=== PATIENT | male | born 1945 | race Caucasian/White ===

== ENCOUNTER 2018-05-13 15:16 | Inpatient (IN) ==
--- NOTE | 2018-05-13 15:29 | ED ---
HPI General Chief complaint: Weakness Stated complaint: sob Time Seen by Provider: 05/13/18 15:22 Source: patient Mode of arrival: ambulatory Limitations: no limitations History of Present Illness HPI narrative: This 72-year-old male is complaining of shortness of breath. He says is been having increasing trouble breathing for the past week. He was scheduled with Dr. Pascal to have a cardiac catheterization on May 14. He had stopped his Eliquis 5 days ago in anticipation of this. He stopped by Dr. Pascal's office today and was told that his hemoglobin was abnormal. He had had it checked at [facility] yesterday. He does smoke cigarettes. He is not having chest pain. There is been no fever or chills. He has not noted black stools. Related Data Home Medications Medication Instructions Recorded Confirmed Other Unknown Meds 05/13/18 apixaban [Eliquis] 5 mg PO BID 05/13/18 05/13/18 Allergies Allergy/AdvReac Type Severity Reaction Status Date / Time ciprofloxacin [From Cipro] Allergy Intermediate Muscle Pain Verified 05/13/18 15 :38 Review of Systems ROS: all other systems reviewed are negative Constitutional Denies weight gain Cardiovascular Denies chest pain and Reports dyspnea Respiratory Reports dyspnea Gastrointestinal Denies diarrhea and Denies nausea [facility] Medical History Medical History Afib (Acute) HTN (hypertension) (Acute) Social History Social History Substance History: No History of Abuse Smoking Status: Current every day smoker Tobacco Type: Cigarettes How Often Do You Have a Drink Containing Alcohol: Never Recent Travel in [facility] within the Last 8 Weeks: No Recent Out of Country Travel within the Last 8 Weeks: No Exam Narrative Exam Narrative: GENERAL: Well-developed male. He appears pale SKIN: Focused skin assessment warm/dry. HEAD: Atraumatic. Normocephalic. EYES: Pupils equal and round. No scleral icterus. No injection or drainage. ENT: No nasal bleeding or discharge. Mucous membranes pink and moist. NECK: Trachea midline. No JVD. CARDIOVASCULAR: Regular rate and rhythm. No murmur appreciated. RESPIRATORY: No accessory muscle use. There is an occasional wheeze. There are bibasilar rales GASTROINTESTINAL: Abdomen soft, non-tender, nondistended. Hepatic and splenic margins not palpable. On rectal exam stool is brown but strongly positive for heme MUSCULOSKELETAL: No obvious deformities. No clubbing. No cyanosis. Trace edema. NEUROLOGICAL: Awake and alert. No obvious cranial nerve deficits. Motor grossly within normal limits. Normal speech. PSYCHIATRIC: Appropriate mood and affect; memory appears quite poor Course Initial Documented Vital Signs Temperature 97.6 F 05/13/18 15:20 Pulse Rate 89 05/13/18 15:20 Respiratory Rate 24 05/13/18 15:20 Blood Pressure 188/92 H 05/13/18 15:20 Pulse Oximetry 96 05/13/18 15:20 Last Documented Vital Signs Temperature 97.9 F 05/13/18 20:40 Pulse Rate 81 05/13/18 21:53 Respiratory Rate 16 05/13/18 21:53 Blood Pressure 164/86 H 05/13/18 21:53 Pulse Oximetry 100 05/13/18 21:53 Critical Care Time Critical Care Time: Yes Total Critical Care Time: 40 Attestation: Aggregate critical care time was 40 minutes. Time to perform other separately billable procedures was not included in the critical care time. My time did not include minutes spent treating any other patients simultaneously or on activities that did not directly contribute to the patient's treatment. The services I provided to this patient were to treat and/or prevent clinically significant deterioration that could result in: , disability, further hypoxia. I provided critical care services requiring my management, as noted below: Chart data review, documentation time, medication orders and management, vital sign assessments/reviewing monitor data, ordering and reviewing lab tests, ordering and interpreting/reviewing x-rays and diagnostic studies, care of the patient and discussion of the patient with the admitting physicians. Sign Out Sign Out Data: Patient Sign Out occurred on 05/13/18 at 16:01. Patient's care was discussed, and care was transferred from Acosta Awad MD to Inez Trinh MD. Sign Out Comment: Gentleman presented with shortness of breath. He has heme positive stool and findings suggestive of CHF. Lab work and x-rays are pending Last updated by Acosta Awad MD at 05/13/18 15:55 Post-Handoff Eval: I received care of patient in checkout. At time of checkout labs are pending with plan for likely admission. Labs revealed anemia and 2 u PRBCs were ordered. Shortly after I took over care of patient he acutely complained of acute worsening shortness of breath at which time he was at the edge of the bed leaning forward. His pulse ox was low in the 80s. He had diffuse wheezes throughout and DuoNeb was ordered but this did not improve and he continued to worsen clinically at which time he was placed on BiPAP and given been 0.5 mg of Ativan. He had significant improvement with this and began to feel comfortable with normalization of his oxygenation. At that time he was also given 40 mg of Lasix and Solu-Medrol. The patient had already been admitted at this time at which time I called Dr. Read, the hospitalist refrigerated national truck driver, and updated the hospitalist team regarding the change in his condition. The mid-level and I discussed how he appears well at this time but as he is to receive blood products later he could have acute decompensation despite receiving Lasix now and again later. We agreed that he should be transferred to [facility] to the ICU under the hospitalist/mailroom coordinator service in case he decompensates overnight there are physicians in house (other than the solo physician in the ED ) that could take care of him. Medical Decision Making MDM Narrative Medical Screen Exam Complete: Yes Emergency Medical Condition: Yes Lab Data Result diagrams: 05/13/18 15:30 05/13/18 15:30 Lab Results 05/13/18 05/13/18 05/13/18 Range/Units 15:30 15:30 15:30 CBC w Diff Slide review pending WBC 7.5 (4.0-11.0) th/mm3 RBC 3.32 L (4.50-5.90) mil/mm3 Hgb 7.2 L (13.0-17.0) gm/dL Hct 23.8 L (39.0-51.0) % MCV 71.7 L (80.0-100.0) fL MCH 21.6 L (27.0-34.0) pg MCHC 30.1 L (32.0-36.0) % RDW 20.3 H (11.6-17.2) % Plt Count 324 (150-450) th/mm3 MPV 9.4 (7.0-11.0) fL Neut % (Auto) 67.3 (16.0-70.0) % Lymph % (Auto) 21.7 (9.0-44.0) % Fajardo % (Auto) 8.3 H (0.0-8.0) % Eos % (Auto) 2.0 (0.0-4.0) % Baso % (Auto) 0.7 (0.0-2.0) % Neut # (Auto) 5.0 (1.8-7.7) th/mm3 Lymph # (Auto) 1.6 (1.0-4.8) th/mm3 Fajardo # (Auto) 0.6 (0.0-0.9) th/mm3 Eos # (Auto) 0.2 (0.0-0.4) th/mm3 Baso # (Auto) 0.1 (0.0-0.2) th/mm3 WBC Differential . Diff Scan Auto diff confirmed Differential Comment . Platelet Estimate Normal (Normal) Platelet Morphology Normal (Normal) Target Cells 1+ H (None) Ovalocytes 1+ H (None) PT 10.5 (9.8-11.6) sec INR 1.0 Ratio APTT 26.8 (23.4-31.7) sec Puncture Site Patient Temperature O2 Saturation (90-100) % ABG pH (7.380-7.420) ABG pCO2 (38-42) mmHg ABG pO2 (61-120) mmHg ABG HCO3 (22-26) mmol/L ABG O2 Content (12.0-20.0) Vol % ABG Base Excess (-2-2) mmol/L ABG Methemoglobin (0-2) % Paco Test Hemoglobin (12.0-16.0) G/DL Carboxyhemoglobin (0-4) % O2 Delivery Device Vent Setting Inspired O2 % Critical Value Sodium 139 (136-145) meq/L Potassium 3.7 (3.5-5.1) meq/L Chloride 109 H (98-107) meq/L Carbon Dioxide 22.2 (21.0-32.0) meq/L Anion Gap 8 (5-15) meq/L BUN 15 (7-18) mg/dL Creatinine 1.40 H (0.60-1.30) mg/dL Estimated GFR 50 L (>89) mL/min Random Glucose 98 (74-106) mg/dL Calcium 8.8 (8.5-10.1) mg/dL Magnesium 2.2 (1.5-2.5) mg/dL Total Bilirubin 0.4 (0.2-1.0) mg/dL AST 18 (15-37) U/L ALT 21 (12-78) U/L Alkaline Phosphatase 99 (45-117) U/L Troponin I 0.03 (0.02-0.05) ng/mL B-Natriuretic Peptide (0-100) pg/mL Total Protein 8.6 H (6.4-8.2) g/dL Albumin 3.5 (3.4-5.0) g/dL Urine Color (Yellw/Straw) Urine Clarity (Clear) Urine pH (5.0-8.5) Ur Specific Edwards (1.002-1.035) Urine Protein (Neg-Trace) mg/dL Urine Glucose (UA) (Negative) mg/dL Urine Ketones (Negative) mg/dL Urine Occult Blood (Negative) Urine Nitrate (Negative) Urine Bilirubin (Negative) Urine Urobilinogen (Less than 2) mg/dL Ur Leukocyte Esterase (Negative) Urine RBC (0-3) /hpf Urine WBC (0-5) /hpf Urine Mucus (Occasional) /lpf Micro UA Comment Ur Microscopic Review Urine Culture Comments Blood Type Antibody Screen MTS Gel Crossmatch 05/13/18 05/13/18 05/13/18 Range/Units 15:30 15:30 16:05 CBC w Diff WBC (4.0-11.0) th/mm3 RBC (4.50-5.90) mil/mm3 Hgb (13.0-17.0) gm/dL Hct (39.0-51.0) % MCV (80.0-100.0) fL MCH (27.0-34.0) pg MCHC (32.0-36.0) % RDW (11.6-17.2) % Plt Count (150-450) th/mm3 MPV (7.0-11.0) fL Neut % (Auto) (16.0-70.0) % Lymph % (Auto) (9.0-44.0) % Fajardo % (Auto) (0.0-8.0) % Eos % (Auto) (0.0-4.0) % Baso % (Auto) (0.0-2.0) % Neut # (Auto) (1.8-7.7) th/mm3 Lymph # (Auto) (1.0-4.8) th/mm3 Fajardo # (Auto) (0.0-0.9) th/mm3 Eos # (Auto) (0.0-0.4) th/mm3 Baso # (Auto) (0.0-0.2) th/mm3 WBC Differential Diff Scan Differential Comment Platelet Estimate (Normal) Platelet Morphology (Normal) Target Cells (None) Ovalocytes (None) PT (9.8-11.6) sec INR Ratio APTT (23.4-31.7) sec Puncture Site Patient Temperature O2 Saturation (90-100) % ABG pH (7.380-7.420) ABG pCO2 (38-42) mmHg ABG pO2 (61-120) mmHg ABG HCO3 (22-26) mmol/L ABG O2 Content (12.0-20.0) Vol % ABG Base Excess (-2-2) mmol/L ABG Methemoglobin (0-2) % Paco Test Hemoglobin (12.0-16.0) G/DL Carboxyhemoglobin (0-4) % O2 Delivery Device Vent Setting Inspired O2 % Critical Value Sodium (136-145) meq/L Potassium (3.5-5.1) meq/L Chloride (98-107) meq/L Carbon Dioxide (21.0-32.0) meq/L Anion Gap (5-15) meq/L BUN (7-18) mg/dL Creatinine (0.60-1.30) mg/dL Estimated GFR (>89) mL/min Random Glucose (74-106) mg/dL Calcium (8.5-10.1) mg/dL Magnesium (1.5-2.5) mg/dL Total Bilirubin (0.2-1.0) mg/dL AST (15-37) U/L ALT (12-78) U/L Alkaline Phosphatase (45-117) U/L Troponin I (0.02-0.05) ng/mL B-Natriuretic Peptide 774 H (0-100) pg/mL Total Protein (6.4-8.2) g/dL Albumin (3.4-5.0) g/dL Urine Color (Yellw/Straw) Urine Clarity (Clear) Urine pH (5.0-8.5) Ur Specific Edwards (1.002-1.035) Urine Protein (Neg-Trace) mg/dL Urine Glucose (UA) (Negative) mg/dL Urine Ketones (Negative) mg/dL Urine Occult Blood (Negative) Urine Nitrate (Negative) Urine Bilirubin (Negative) Urine Urobilinogen (Less than 2) mg/dL Ur Leukocyte Esterase (Negative) Urine RBC (0-3) /hpf Urine WBC (0-5) /hpf Urine Mucus (Occasional) /lpf Micro UA Comment Ur Microscopic Review Urine Culture Comments Blood Type B Positive Antibody Screen Negative MTS Gel Crossmatch See Detail 05/13/18 05/13/18 Range/Units 17:30 17:35 CBC w Diff WBC (4.0-11.0) th/mm3 RBC (4.50-5.90) mil/mm3 Hgb (13.0-17.0) gm/dL Hct (39.0-51.0) % MCV (80.0-100.0) fL MCH (27.0-34.0) pg MCHC (32.0-36.0) % RDW (11.6-17.2) % Plt Count (150-450) th/mm3 MPV (7.0-11.0) fL Neut % (Auto) (16.0-70.0) % Lymph % (Auto) (9.0-44.0) % Fajardo % (Auto) (0.0-8.0) % Eos % (Auto) (0.0-4.0) % Baso % (Auto) (0.0-2.0) % Neut # (Auto) (1.8-7.7) th/mm3 Lymph # (Auto) (1.0-4.8) th/mm3 Fajardo # (Auto) (0.0-0.9) th/mm3 Eos # (Auto) (0.0-0.4) th/mm3 Baso # (Auto) (0.0-0.2) th/mm3 WBC Differential Diff Scan Differential Comment Platelet Estimate (Normal) Platelet Morphology (Normal) Target Cells (None) Ovalocytes (None) PT (9.8-11.6) sec INR Ratio APTT (23.4-31.7) sec Puncture Site Left radial Patient Temperature 98.6 O2 Saturation 93 (90-100) % ABG pH 7.42 (7.380-7.420) ABG pCO2 32 L (38-42) mmHg ABG pO2 84 (61-120) mmHg ABG HCO3 21 L (22-26) mmol/L ABG O2 Content 9.6 L (12.0-20.0) Vol % ABG Base Excess -3.2 L (-2-2) mmol/L ABG Methemoglobin 1.3 (0-2) % Paco Test Present Hemoglobin 7.2 L* (12.0-16.0) G/DL Carboxyhemoglobin 2.3 (0-4) % O2 Delivery Device Bipap Vent Setting Ipap 15/epap 5 Inspired O2 50 % Critical Value Yes Sodium (136-145) meq/L Potassium (3.5-5.1) meq/L Chloride (98-107) meq/L Carbon Dioxide (21.0-32.0) meq/L Anion Gap (5-15) meq/L BUN (7-18) mg/dL Creatinine (0.60-1.30) mg/dL Estimated GFR (>89) mL/min Random Glucose (74-106) mg/dL Calcium (8.5-10.1) mg/dL Magnesium (1.5-2.5) mg/dL Total Bilirubin (0.2-1.0) mg/dL AST (15-37) U/L ALT (12-78) U/L Alkaline Phosphatase (45-117) U/L Troponin I (0.02-0.05) ng/mL B-Natriuretic Peptide (0-100) pg/mL Total Protein (6.4-8.2) g/dL Albumin (3.4-5.0) g/dL Urine Color Yellow (Yellw/Straw) Urine Clarity Clear (Clear) Urine pH 6.5 (5.0-8.5) Ur Specific Edwards 1.020 (1.002-1.035) Urine Protein 100 H (Neg-Trace) mg/dL Urine Glucose (UA) Negative (Negative) mg/dL Urine Ketones Negative (Negative) mg/dL Urine Occult Blood Negative (Negative) Urine Nitrate Negative (Negative) Urine Bilirubin Negative (Negative) Urine Urobilinogen 0.2 (Less than 2) mg/dL Ur Leukocyte Esterase Negative (Negative) Urine RBC 0-3 (0-3) /hpf Urine WBC 0-5 (0-5) /hpf Urine Mucus Rare H (Occasional) /lpf Micro UA Comment Culture not ind Ur Microscopic Review Microscopic reviewed Urine Culture Comments Culture not ind Blood Type Antibody Screen MTS Gel Crossmatch Imaging Data Radiologist's impression: Chest X-Ray 05/13/18 15:25 CONCLUSION: Probable congestive failure superimposed over chronic fibrosis. Inflammatory process cannot be entirely excluded. Discharge Plan Discharge Disposition Patient Disposition: ED Admit(ED Internal Use Only) Discharge Condition Condition: Serious Discharge Order Discharge Orders: ED Use Only Admit Order (Routine); Ordered 05/13/18 Ordered By: Inez Trinh Discharge Details Diagnosis: Acute respiratory failure, Acute exacerbation of CHF (congestive heart failure) , Acute blood loss anemia Physicians Team ED Provider: Inez Trinh Primary Care Provider: UNKNOWN, Attending Provider: Connor Read Other Providers: Emely Osullivan ; Fabrizio Fenton Status ED Status: Admitted Patient
[2018-05-13] MEDS ORDERED: Pantoprazole Inj 80 MG in Sodium Chlor 0.9% Inj 35 ML IV.SIG ONE (15:32)
[2018-05-13 15:49] LABS: Chloride 109 meq/L (98-107); Potassium 3.7 meq/L (3.5-5.1); Sodium 139 meq/L (136-145)
[2018-05-13 15:52] LABS: Albumin 3.5 g/dL (3.4-5.0); Anion Gap 8 meq/L (5-15); Blood Urea Nitrogen 15 mg/dL (7-18); Calcium 8.8 mg/dL (8.5-10.1); Carbon Dioxide 22.2 meq/L (21.0-32.0); Glucose,Random 98 mg/dL (74-106); Magnesium 2.2 mg/dL (1.5-2.5)
[2018-05-13 15:53] LABS: Baso # (Auto) 0.1 th/mm3 (0.0-0.2); Baso % (Auto) 0.7 % (0.0-2.0); Eos # (Auto) 0.2 th/mm3 (0.0-0.4); Hematocrit 23.8 % (39.0-51.0); Hemoglobin 7.2 gm/dL (13.0-17.0); Lymph # (Auto) 1.6 th/mm3 (1.0-4.8); Lymph % (Auto) 21.7 % (9.0-44.0); Mean Corpuscular Hemoglobin 21.6 pg (27.0-34.0); Mean Corpuscular Volume 71.7 fL (80.0-100.0); Mean Platelet Volume 9.4 fL (7.0-11.0); Mono # (Auto) 0.6 th/mm3 (0.0-0.9); Mono % (Auto) 8.3 % (0.0-8.0); Neut % (Auto) 67.3 % (16.0-70.0); Platelet Count 324 th/mm3 (150-450); Red Blood Count 3.32 mil/mm3 (4.50-5.90); Red Cell Distribution Width 20.3 % (11.6-17.2); White Blood Count 7.5 th/mm3 (4.0-11.0)
[2018-05-13 15:54] LABS: Mean Corpuscular HGB Conc 30.1 % (32.0-36.0)
[2018-05-13 15:55] LABS: Activated Partial Thrombo Time 26.8 sec (23.4-31.7); Alanine Aminotransferase 21 U/L (12-78); Aspartate Aminotransferase 18 U/L (15-37); Prothrombin Time 10.5 sec (9.8-11.6)
[2018-05-13 15:56] LABS: Glomerular Filtration Rate 50 mL/min (>89)
--- NOTE | 2018-05-13 15:56 | XR ---
EXAM DATE: 05/13/2018 3:53 PM EST AGE/SEX: 72 years / Male INDICATIONS: Cough and short of breath. CLINICAL DATA: This is the patient's initial encounter. Patient reports that signs and symptoms have been present for 3 days and indicates a pain score of 4/10. MEDICAL/SURGICAL HISTORY: None. None. COMPARISON: No prior exams available for comparison. FINDINGS: The study is abnormal. I have no prior studies for comparison. The heart is enlarged. There are moder ate interstitial superimposed over what looks like chronic fibrotic changes suggesting congestive ana lure. There is no pleural effusion. There is no alveolar consolidation. Degenerative changes about both shoulders. CONCLUSION: Probable congestive failure superimposed over chronic fibrosis. Inflammatory process cannot be entirely excluded. Electronically signed by: August Mullen MD Board Certified Radiologist 05/13/2018 3:55 PM EST
[2018-05-13 15:57] LABS: Total Protein 8.6 g/dL (6.4-8.2)
[2018-05-13 15:58] LABS: Alkaline Phosphatase 99 U/L (45-117)
[2018-05-13 16:00] LABS: Troponin I 0.03 ng/mL (0.02-0.05)
[2018-05-13] MEDS: Pantoprazole Inj 80 MG in Sodium Chlor 0.9% Inj 100 ML IV.CONT SCH (16:03)
[2018-05-13] MEDS ORDERED: MethylPREDNISolone Sod Succinate Inj 125 MG/2 ML Vial IV.PUSH ONE (16:26)
[2018-05-13] MEDS ORDERED: Bisacodyl 10 MG Supp RECTAL PRN (16:29)
[2018-05-13] MEDS ORDERED: Acetaminophen 325 MG Tablet PO PRN (16:29)
[2018-05-13 16:30] LABS: Ovalocytes 1+; Platelet Estimate Normal (Normal); Platelet Morphology Normal (Normal); Target Cells 1+
--- NOTE | 2018-05-13 16:31 | P.HPIM ---
"History of Present Illness Primary Care Physician: UNKNOWN Chief Complaint: Shortness of breath and abnormal labs History of Present Illness: This is a 72-year-old male patient with a known medical history of atrial fibrillation on Eliquis and h/o hypertension who presented to the ED with complaints of shortness of breath x 1 week. He has actually been scheduled to undergo a cardiac catheterization tomorrow with Dr. Chi and in preparation for this procedure he has stopped his Eliquis 5 days ago. Supposedly his scoop filler called patient today with an abnormal hemoglobin and was advised to present to the ED for evaluation. Upon arrival patient was supposedly on RA and breathing comfortably. Shortly after while in the ED patient decompensated, was placed on BIPAP 15/5/50% with apparent accessory muscle use. Awaiting ABG. Patient is completely awake and oriented and actually improved with BIPAP and diuretics, given Lasix 40 mg IV with 1L urine output. Heme positive stool as well. BNP 774. Hemoglobin 7.2/hematocrit 23.8 on presentation. Admit to ICU for BIPAP administration, PRBC transfusion, ICU consult was well as GI consultation. It should be noted that patient denies any recent fever, chills, cough, headache, abdominal pain, chest pain, nausea, vomiting, diarrhea, black or bloody stools or dysuria. Attempting to obtain patient's medication list although he is unaware of what he takes at home. It is also questionable why the patient was going to have a cardiac cath tomorrow, patient is unaware. Review of Systems Review of Systems: all other systems reviewed are negative [facility] Medical History Medical History Afib (Acute) HTN (hypertension) (Acute) Social History Social History Substance History: No History of Abuse Second Hand Smoke Exposure: Yes Smoking Status: Current every day smoker Tobacco Type: Cigarettes How Often Do You Have a Drink Containing Alcohol: Never Recent Travel in [facility] within the Last 8 Weeks: No Recent Out of Country Travel within the Last 8 Weeks: No Immunization History Tetanus Immunization: >5 Years Medications and Allergies Allergies Allergy/AdvReac Type Severity Reaction Status Date / Time ciprofloxacin [From Cipro] Allergy Intermediate Muscle Pain Verified 05/13/18 15 :38 Home Medications Medication Instructions Recorded Confirmed Type Other Unknown Meds 05/13/18 History apixaban [Eliquis] 5 mg PO BID 05/13/18 05/13/18 History amiodarone 200 mg PO DAILY 05/14/18 05/14/18 History doxazosin 4 mg PO DAILY 05/14/18 05/14/18 History isosorbide mononitrate 30 mg PO DAILY 05/14/18 05/14/18 History prednisone 1 mg PO DAILY 05/14/18 05/14/18 History Active Medications: Active Medications Pantoprazole Sodium 80 mg/ (Sodium Chloride) 100 mls @ 10 mls/hr IV.CONT CONT KIRAN Last Admin: 05/13/18 16:03 Dose: 10 mls/hr Sodium Chloride (Ns Inj) 250 mls @ 15 mls/hr IV.SIG ONCE KIRAN Stop: 05/14/18 09:39 Physical Exam Vital signs: Vital Signs 05/13/18 15:20 05/13/18 15:25 05/13/18 16:06 Temperature 97.6 F Pulse Rate 89 89 Respiratory Rate 24 26 H Blood Pressure 188/92 H 185/82 H Pulse Oximetry 96 97 Intake & Output 05/12/18 05/13/18 05/13/18 18:59 06:59 18:59 Weight 85.5 kg Narrative: GENERAL: Well-developed, well-nourished critically ill patient on BIPAP with accessory muscle use. SKIN: Clammy. No rash. HEAD: Normocephalic. Atraumatic. EYES: Pupils equal and round. Hazy cornea. No scleral icterus. No injection or drainage. ENT: No nasal bleeding or discharge. Mucous membranes pink and moist. NECK: Supple. Trachea midline. CARDIOVASCULAR: Regular rate and rhythm. S1, S2 noted. RESPIRATORY: With accessory muscle use. Diffuse crackles, with exp wheezing to bilateral posterior lobes. Breath sounds equal bilaterally. GASTROINTESTINAL: Abdomen soft, non-tender, nondistended. Normoactive bowel sounds x4. MUSCULOSKELETAL: No obvious deformities. Extremities without clubbing, cyanosis , or edema. NEUROLOGICAL: Awake and alert. No obvious cranial nerve deficits. Motor grossly within normal limits. 5/5 muscle strength in bilateral upper and lower extremities. Normal speech. 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 Inflammatory process cannot be entirely excluded. Caprini VTE Risk Assessment Caprini VTE Risk Assessment: Moderate/High Risk (score >= 2) Caprini Risk Assessment Model: Point Value = 1 Point Value = 2 Point Value = 3 Point Value = 5 Age 41-60 Minor surgery BMI > 25 kg/m2 Swollen legs Varicose veins or History of unexplained or recurrent spontaneous Oral contraceptives or hormone replacement Sepsis (< 1 month) Serious lung disease, including pneumonia (< 1 month) Abnormal pulmonary function Acute myocardial infarction Congestive heart failure (< 1 month) History of inflammatory bowel disease Medical patient at bed rest Age 61-74 Arthroscopic surgery Major open surgery (> 45 min) Laparoscopic surgery (> 45 min) Malignancy Confined to bed (> 72 hours) Immobilizing plaster cast Central venous access Age >= 75 History of VTE Family history of VTE Factor V Leiden Prothrombin [id number] Lupus anticoagulant Anticardiolipin antibodies Elevated serum homocysteine Heparin-induced thrombocytopenia Other congenital or acquired thrombophilia Stroke (< 1 month) Elective arthroplasty Hip, pelvis, or leg fracture Acute spinal cord injury (< 1 month) Prophylaxis Regimen: Total Risk Factor Score Risk Level Prophylaxis Regimen 0-1 Low Early ambulation 2 Moderate Order ONE of the following: *Sequential Compression Device (SCD) *Heparin 5000 units SQ BID 3-4 Higher Order ONE of the following medications: *Heparin 5000 units SQ TID *Enoxaparin/Lovenox 40 mg SQ daily (WT < 150 kg, CrCl > 30 mL/min) *Enoxaparin/Lovenox 30 mg SQ daily (WT < 150 kg, CrCl > 10-29 mL/min) *Enoxaparin/Lovenox 30 mg SQ BID (WT < 150 kg, CrCl > 30 mL/min) AND/OR *Sequential Compression Device (SCD) 5 or more Highest Order ONE of the following medications: *Heparin 5000 units SQ TID (Preferred with Epidurals) *Enoxaparin/Lovenox 40 mg SQ daily (WT < 150 kg, CrCl > 30 mL/min) *Enoxaparin/Lovenox 30 mg SQ daily (WT < 150 kg, CrCl > 10-29 mL/min) *Enoxaparin/Lovenox 30 mg SQ BID (WT < 150 kg, CrCl > 30 mL/min) AND *Sequential Compression Device (SCD) Assessment and Plan Plan This is a 72-year-old male patient with a known medical history of atrial fibrillation and hypertension who presented to the ED with complaints of shortness of breath. Supposedly patient has been having shortness of breath for the past week, he has been scheduled to undergo a cardiac catheterization on May [address] Chi and for this procedure he has stopped his Eliquis 5 days ago. Supposedly scoop filler office called patient with an abnormal hemoglobin and was advised to present to the ED for evaluation. Acute CHF exacerbation, unspecified type, likely systolic Acute hypoxic and hypercapnic respiratory failure -BNP 774 on presentation. Chest x-ray showing probable congestive heart failure superimposed on chronic fibrosis. -Presented with shortness of breath for a week. Could be related to CHF exacerbation versus symptomatic anemia. -Was given Lasix IV 40 mg x1. Add additional Lasix 40. -Placed on Lasix IV 40 mg daily. Order for Lasix 20 mg IV between units. -Monitor intake and output closely. -Obtain ECHO. No recent ECHO in EMR. Consider consultation to patient's scoop filler Dr. Chi. -Decompensated in ED, requiring BIPAP. 15/5/50%. Continue efforts. Awaiting ABG. Close monitoring. -Transfer to [facility] for ICU, spoke with Dr. Noland who accepts transfer. Acute severe anemia suspect secondary to acute blood loss 2|2 GI bleed -Presented with shortness of breath as well as generalized fatigue over the past week. -Heme positive on presentation. Hemoglobin 7.2/hematocrit 23.8. -Supposed to undergo a cardiac cath on May 14 with scoop filler, has stopped Eliquis for 5 days now. -Started on Protonix drip. Continue. -Transfuse 2 units PRBC stat. Monitor for active bleeding. Trend H&H. Lasix between units. Monitor for overload. -Gastroenterology consulted, input & recommendations pending. Acute ? kidney injury on suspected chronic kidney disease -Creatinine 1.4/GFR 50. No obvious lab work in EMR. -Check labs in a.m. Should improve with diuretics. -Avoid nephrotoxins. DVT prophylaxis: SCDs. Hold chemical prophylaxis secondary to GI bleed. Discussed with patient, bedside RN, Dr. Trinh, Dr. Read and Dr. Noland. Transfer to [facility], patient is critically ill and has potential to decompensate overnight. Spoke with Dr. Noland who accepts patient. The exam, history, and the medical decision-making described in the above note were completed with the assistance of the mid-level provider. I reviewed and agree with the findings presented. I attest that I had a [id number] encounter with the patient on the same day, and personally performed and documented my assessment and findings in the medical record."
[2018-05-13] MEDS ORDERED: Sodium Chlor 0.9% Inj 250 ML IV.SIG SCH (17:00)
[2018-05-13 17:42] LABS: ABG Base Excess -3.2 mmol/L (-2-2); ABG PCO2 32 mmHg (38-42); ABG PO2 84 mmHg (61-120)
[2018-05-13 17:43] LABS: Bilirubin,Urine Negative (Negative); Clarity,Urine Clear (Clear); Color,Urine Yellow (Yellw/Straw); Glucose,Urine (UA) Negative (Negative); Leukocyte Esterase,Urine Negative (Negative); Nitrite,Urine Negative (Negative); PH,Urine 6.5 (5.0-8.5); Urobilinogen,Urine 0.2 mg/dL (Less than 2)
[2018-05-13 17:55] LABS: Mucus,Urine Rare /lpf (Occasional); RBC,Urine 0-3 /hpf (0-3); WBC,Urine 0-5 /hpf (0-5)
[2018-05-13] MEDS: MethylPREDNISolone Sod Succinate Inj 40 MG/ML Vial IV.PUSH SCH (22:20)
--- NOTE | 2018-05-13 23:37 | P.CONCC ---
History of Present Illness Service: Critical care medicine Consult date: 05/13/18 Requesting Physician: Pita Lebron Reason for Consult: respiratory failure Primary Care Provider: UNKNOWN Chief Complaint: Shortness of breath and abnormal labs History of Present Illness: This is a 72-year-old male with a history of coronary artery disease who presented to the emergency department with worsening shortness of breath times a few days. Per records and the patient report, he is scheduled for elective left heart catheterization tomorrow 05/14 by his grade teacher. The patient states that he has been having worsening left shoulder pain and bilateral lower extremity pain for the past few weeks, and that prompted left heart catheterization. His Eliquis has been held times 5 days in preparation for this. He presented to the emergency department with severe shortness of breath and acute hypoxemia with respiratory distress. He was placed on BiPAP. Chest x -ray demonstrates bilateral infiltrates suggestive of pulmonary edema. His BNP is greater than 700. He was given 2 doses of Lasix 40 mill grams IV. Both the emergency room physician as well as the internal medicine nurse practitioner contacted me as they felt the patient was clinically decompensating. In addition, 2 units PRBCs were ordered for a new hemoglobin of 7 in the setting of presumed GI bleeding and both providers felt that blood product administration in the setting of severe congestive heart failure exacerbation more likely to cause worsening clinical decompensation. Due to their clinical concerns, the patient was emergently transferred to [facility] in [place] for further workup and evaluation. When I evaluated the patient on arrival to the ICU at [facility], the patient's dyspnea was improving. He was able to talk in full sentences. He states he feels this is his shortness of breath is improved. Denies new complaints. Denies fever, chills, nausea, vomiting, abdominal pain, hematemesis, hematochezia, bright red blood per rectum, chest pain, orthopnea, dyspnea on exertion. Remainder of the review of systems is negative. Review of Systems All other systems reviewed negative except as stated in HPI PMFSH - History History Provided By: Patient, Medical Record - Medical History Medical History: Medical History (Last Reviewed 05/13/18 @ 23:53 by Fabrizio Fenton MD) Afib HTN (hypertension) - Family History Family History: Family History (Last Reviewed 05/13/18 @ 23:53 by Fabrizio Fenton MD) Other Family history non-contributory - Social History I have reviewed the patient's Social History: Yes - Tobacco History Second Hand Smoke Exposure: Yes Tobacco Use In Past 30 Days: Yes Smoking Status: Current every day smoker Tobacco Type: Cigarettes - Alcohol History How Often Do You Have a Drink Containing Alcohol: Never - Substance Use History Substance History: No History of Abuse - Travel History Recent Travel in the [place] Within the Last 8 Weeks: No Recent Travel Out of the Country Within the Last 8 Weeks: No - Immunization History Tetanus Immunization: >5 Years Hx Influenza Vaccine This Season: No Medications and Allergies Active Medications: Active Medications Acetaminophen (Tylenol) 650 mg PO Q4H PRN PRN Reason: Temp > 100.4 Al Hydroxide/Mg Hydroxide (Milk Of Magnesia Liq) 30 ml PO Q12H PRN PRN Reason: Mild Constipation Albuterol (Duoneb Neb (Prn)) 1 ampul NEB Q2HR NEB PRN PRN Reason: SHORTNESS OF BREATH/WHEEZING Albuterol (Duoneb Neb (Bree)) 1 ampul NEB Q6HR WHILE AWAKE NEB BREE Last Admin: 05/13/18 19:07 Dose: 1 ampul Bisacodyl (Dulcolax Supp) 10 mg RECTAL DAILY PRN PRN Reason: SEVERE CONSITIPATION Chlorhexidine Gluconate (Chlorhexidine 2% Cloth) 3 pack TOPICAL DAILY@0400 BREE Stop: 05/19/18 03:59 Chlorhexidine Gluconate (Chlorhexidine 2% Cloth) 3 pack TOPICAL DAILY@0400 PRN PRN Reason: Extra cloth needed Stop: 05/19/18 03:59 Furosemide (Lasix Inj) 40 mg IV.PUSH DAILY BREE Hydralazine HCl (Apresoline Inj) 10 mg IV.PUSH Q30M PRN PRN Reason: SBP>160, DBP>90 Pantoprazole Sodium 80 mg/ (Sodium Chloride) 100 mls @ 10 mls/hr IV.CONT CONT BREE Last Infusion: 05/13/18 22:25 Dose: 10 mls/hr Sodium Chloride (Ns Inj) 250 mls @ 15 mls/hr IV.SIG ONCE BREE Stop: 05/14/18 09:39 Last Admin: 05/13/18 20:22 Dose: 15 mls/hr Lactulose (Lactulose Liq) 30 ml PO DAILY PRN PRN Reason: SEVERE CONSITIPATION Methylprednisolone Sodium Succinate (Solumedrol Inj) 40 mg IV.PUSH Q6H [facility] Last Admin: 05/13/18 22:20 Dose: 40 mg Ondansetron HCl (Zofran Inj) 4 mg IV.PUSH Q6H PRN PRN Reason: NAUSEA OR VOMITING Sennosides (Senokot) 17.2 mg PO Q12H PRN PRN Reason: Moderate Constipation Sodium Chloride (Ns Flush) 2 ml IV.FLUSH BID [facility] Last Admin: 05/13/18 22:21 Dose: 2 ml Sodium Chloride (Ns Flush) 2 ml IV.FLUSH PRN PRN PRN Reason: FLUSH AFTER USING IV ACCESS Allergies Allergy/AdvReac Type Severity Reaction Status Date / Time ciprofloxacin [From Cipro] Allergy Intermediate Muscle Pain Verified 05/13/18 15 :38 Home Medications Medication Instructions Recorded Confirmed Type Other Unknown Meds 05/13/18 History apixaban [Eliquis] 5 mg PO BID 05/13/18 05/13/18 History Physical Exam Vital signs: Vital Signs 05/13/18 15:20 05/13/18 15:25 05/13/18 16:06 Temperature 36.4 C Pulse Rate 89 89 Respiratory Rate 24 26 H Blood Pressure 188/92 H 185/82 H Pulse Oximetry 96 95 05/13/18 16:29 05/13/18 16:35 05/13/18 16:41 Temperature Pulse Rate Respiratory Rate 28 H Blood Pressure 182/86 H Pulse Oximetry 93 L 98 98 05/13/18 16:42 05/13/18 16:47 05/13/18 16:55 Temperature Pulse Rate 117 H 116 H Respiratory Rate 30 H 32 H Blood Pressure Pulse Oximetry 99 05/13/18 17:05 05/13/18 17:37 05/13/18 18:10 Temperature Pulse Rate 101 H 88 75 Respiratory Rate 28 H 26 H 24 Blood Pressure 184/107 H 175/86 H 151/61 H Pulse Oximetry 99 98 98 05/13/18 18:43 05/13/18 19:08 05/13/18 19:41 Temperature Pulse Rate 75 83 83 Respiratory Rate 24 20 16 Blood Pressure 150/76 H 165/82 H Pulse Oximetry 100 100 95 05/13/18 20:20 05/13/18 20:35 02/25/19 20:40 Temperature 37.1 C 36.6 C Pulse Rate 82 82 81 Respiratory Rate 20 22 Blood Pressure 167/88 H 165/81 H Pulse Oximetry 100 98 05/13/18 21:01 05/13/18 21:53 05/13/18 22:25 Temperature Pulse Rate 83 81 83 Respiratory Rate 20 16 22 Blood Pressure 156/80 H 164/86 H 169/93 H Pulse Oximetry 100 100 100 05/13/18 23:00 Temperature Pulse Rate Respiratory Rate Blood Pressure Pulse Oximetry 97 Intake & Output 05/13/18 05/13/18 05/14/18 06:59 18:59 06:59 Intake Total 35 / 35 455 / 455 Output Total 650 / 650 1225 / 1225 Balance -615 / -615 -770 / -770 Weight 85.5 kg 88 kg Intake: IV 35 / 35 55 / 55 Protonix Inj 80 MG In NS Inj 55 / 55 100 ML @ 10 mls/hr IV.CONT CONT BREE Rx#:[id number] Protonix Inj 80 MG In NS Inj 35 35 / 35 ML @ 420 mls/hr IV.SIG BOLUS ONE Rx#:[id number] Intake (Blood Product) Amt 400 / 400 Rbc As-3 Leukoreduced Unit 400 / 400 [id number] Output: Urine 650 / 650 1225 / 1225 Other: # Voids 1 Weight On Admission 88 kg Narrative: GENERAL: Elderly male, lying in bed, BiPAP in place HEENT: Normocephalic. Atraumatic. Pupils equal, round, reactive, conjugate. Mucous membranes are moist NECK: Trachea is midline. Significant JVD up to the level of mandible. CHEST: Equal chest rise. BiPAP in place. FiO2 35%. SPO2 100%. CARDIOVASCULAR: Normal rate, regular rhythm. Appears sinus by telemetry. ABDOMEN: Soft, nontender, nondistended. No guarding. MUSCULOSKELETAL: Pulses 2+. 2+ pitting edema lower extremities. NEUROLOGICAL: RASS 0. CAM -. Follows commands in all 4 extremities. No focal deficits. Assessment and Plan - Assessment and Plan Plan: Assessment: This is a 72-year-old male with history of coronary disease and now with acute severe congestive heart failure exacerbation, unknown type, but presumably systolic type. Concerning is the fact that he is planned to have left heart catheterization for what appears to be atypical angina/unstable angina type symptoms over the last few weeks per his grade teacher. We will consult cardiology and asked him to continue to be involved. His new hemoglobin of 7 is also concerning, and I agree with continuing the patient on a PPI drip. We will continue forced diuresis in the setting of blood product administration and trend hemoglobins. He is critically ill with life- threatening hypoxemia, CHF exacerbation, and acute presumed GI bleeding. Plan by systems: Neurologic: Frequent neurochecks Avoid long-acting sedatives Respiratory: Acute hypoxic and hypercarbic respiratory failure Severe acute pulmonary edema BiPAP as needed Wean FiO2 for goal SPO2 greater than 90% PRN nebs We will continue the IV steroids started by the hospitalist team until reactive airways can be ruled out No acute infectious etiology suspected Cardiovascular: Acute severe congestive heart failure exacerbation, unknown type Coronary artery disease Atypical angina/possible unstable angina based on clinical history Consult cardiology Planned elective cath 05/14. We will keep patient n.p.o. Trend troponins Trend BNP Forced diuresis Renal: Acute kidney injury -- Strict I/Os FEN/GI: Acute intravascular volume overload Possible GI bleeding N.p.o. PPI drip Consult gastroenterology Forced diuresis with Lasix Heme/ID: Acute anemia secondary to blood loss 2 units PRBC Trend H&H Avoid anticoagulation No infectious etiology suspected at this time Endocrine: Diabetes -- SSI Prophylaxis: GI Prophylaxis PPI drip DVT Prophylaxis -- SCDs Hold pharmacologic DVT prophylaxis in the setting of presumed GI bleeding Lines: Peripheral IVs Dispo: Admit to ICU. Critically ill. This patient remains critically ill with one or more organ systems which are or may become a threat to life. I have spent in excess of 32 minutes discontinuously in the care and management of this patient. This time is exclusive of procedures, and includes, but is not limited to, evaluation of the patient, review of the medical record, discussions with family, consultants, nursing staff, or respiratory therapy, and documentation in the medical record.
[2018-05-13] MEDS ORDERED: Potassium Phosphate Inj 30 MMOL in Sodium Chlor 0.9% Inj 250 ML IV.SIG PRN (23:39)
[2018-05-13] MEDS ORDERED: Potassium Phosphate 500 MG Soluble Tablet PO PRN ×2 (23:39)
[2018-05-13] MEDS ORDERED: Magnesium Sulfate Inj 4 GM in Sodium Chlor 0.9% Inj 92 ML IV.SIG PRN (23:39)
[2018-05-13] MEDS ORDERED: Potassium Chlor 40 mEq Premix 40 MEQ/100 ML PIGGYBACK IV.SIG PRN ×2 (23:39)
[2018-05-13] MEDS ORDERED: Magnesium Sulfate Inj 2 GM in Sodium Chlor 0.9% Inj 96 ML IV.SIG PRN (23:39)
[2018-05-13] MEDS ORDERED: Magnesium Oxide 400 MG Tablet PO PRN (23:39)
[2018-05-13] MEDS ORDERED: Sodium Phosphate Inj 30 MMOL in Sodium Chlor 0.9% Inj 250 ML IV.SIG PRN (23:39)
[2018-05-13] MEDS ORDERED: Potassium Chloride Liq 20 MEQ/15 ML UDC PO PRN ×2 (23:39)
[2018-05-14] MEDS: Pantoprazole Inj 80 MG in Sodium Chlor 0.9% Inj 100 ML IV.CONT SCH ×2 (01:59→13:36)
[2018-05-14] MEDS: hydrALAZINE HCl Inj 20 MG/ML Vial IV.PUSH PRN ×3 (02:54→13:37)
[2018-05-14 03:58] LABS: Baso % (Auto) 0.2 % (0.0-2.0); Hemoglobin 9.9 gm/dL (13.0-17.0); Lymph # (Auto) 0.7 th/mm3 (1.0-4.8); Lymph % (Auto) 9.2 % (9.0-44.0); Mean Corpuscular HGB Conc 31.9 % (32.0-36.0); Mean Corpuscular Hemoglobin 23.3 pg (27.0-34.0); Mean Platelet Volume 8.4 fL (7.0-11.0); Mono # (Auto) 0.1 th/mm3 (0.0-0.9); Mono % (Auto) 1.5 % (0.0-8.0); Neut % (Auto) 89.1 % (16.0-70.0); Platelet Count 262 th/mm3 (150-450); Red Blood Count 4.24 mil/mm3 (4.50-5.90); Red Cell Distribution Width 22.9 % (11.6-17.2); White Blood Count 7.8 th/mm3 (4.0-11.0)
[2018-05-14] MEDS ORDERED: Chlorhexidine Gluconate 2% 1 Pack (2 Cloths) TOPICAL PRN (04:00)
[2018-05-14 04:11] LABS: Calcium 8.9 mg/dL (8.5-10.1); Carbon Dioxide 24.5 meq/L (21.0-32.0); Potassium 3.3 meq/L (3.5-5.1)
[2018-05-14] MEDS: Chlorhexidine Gluconate 2% 1 Pack (2 Cloths) TOPICAL SCH (04:48)
[2018-05-14] MEDS: MethylPREDNISolone Sod Succinate Inj 40 MG/ML Vial IV.PUSH SCH ×4 (04:48→22:02)
[2018-05-14] MEDS: Potassium Chlor 20 mEq Premix 20 MEQ/100 ML PIGGYBACK IV.SIG PRN ×2 (04:49→08:27)
--- NOTE | 2018-05-14 09:00 | P.PNCC ---
Subjective Subjective Remarks/Hospital Course: This is a 72-year-old male with a history of coronary artery disease who presented to the emergency department with worsening shortness of breath times a few days. Per records and the patient report, he is scheduled for elective left heart catheterization tomorrow 05/14 by his automotive parts salesperson. The patient states that he has been having worsening left shoulder pain and bilateral lower extremity pain for the past few weeks, and that prompted left heart catheterization. His Eliquis has been held times 5 days in preparation for this. He presented to the emergency department with severe shortness of breath and acute hypoxemia with respiratory distress. He was placed on BiPAP. Chest x -ray demonstrates bilateral infiltrates suggestive of pulmonary edema. His BNP is greater than 700. He was given 2 doses of Lasix 40 mill grams IV. Both the emergency room physician as well as the internal medicine nurse practitioner contacted me as they felt the patient was clinically decompensating. In addition, 2 units PRBCs were ordered for a new hemoglobin of 7 in the setting of presumed GI bleeding and both providers felt that blood product administration in the setting of severe congestive heart failure exacerbation more likely to cause worsening clinical decompensation. Due to their clinical concerns, the patient was emergently transferred to [facility] in [place] for further workup and evaluation. When I evaluated the patient on arrival [place] the ICU [place] [facility], the patient's dyspnea was improving. He was able to talk in full sentences. He states he feels this is his shortness of breath is improved. Denies new complaints. Denies fever, chills, nausea, vomiting, abdominal pain, hematemesis, hematochezia, bright red blood per rectum, chest pain, orthopnea, dyspnea on exertion. Remainder of the review of systems is negative. 05/14 Patient is awake and alert on BIPAP 15/5 with 35% FIO2. Afebrile. s/p transfusion 2u PRBC overnight. On Protonix drip. Hypertensive. Objective Vital Signs / I&O: Vital Signs 05/13/18 15:20 05/13/18 15:25 05/13/18 16:06 Temperature 97.6 F Pulse Rate 89 89 Respiratory Rate 24 26 H Blood Pressure 188/92 H 185/82 H Pulse Oximetry 96 95 05/13/18 16:29 05/13/18 16:35 05/13/18 16:41 Temperature Pulse Rate Respiratory Rate 28 H Blood Pressure 182/86 H Pulse Oximetry 93 L 98 98 05/13/18 16:42 05/13/18 16:47 05/13/18 16:55 Temperature Pulse Rate 117 H 116 H Respiratory Rate 30 H 32 H Blood Pressure Pulse Oximetry 99 05/13/18 17:05 05/13/18 17:37 05/13/18 18:10 Temperature Pulse Rate 101 H 88 75 Respiratory Rate 28 H 26 H 24 Blood Pressure 184/107 H 175/86 H 151/61 H Pulse Oximetry 99 98 98 05/13/18 18:43 05/13/18 19:08 05/13/18 19:41 Temperature Pulse Rate 75 83 83 Respiratory Rate 24 20 16 Blood Pressure 150/76 H 165/82 H Pulse Oximetry 100 100 95 05/13/18 20:00 05/13/18 20:20 05/13/18 20:35 Temperature 98.7 F Pulse Rate 82 82 Respiratory Rate 20 Blood Pressure 167/88 H Pulse Oximetry 98 100 05/13/18 20:40 05/13/18 21:01 05/13/18 21:53 Temperature 97.9 F Pulse Rate 81 83 81 Respiratory Rate 22 20 16 Blood Pressure 165/81 H 156/80 H 164/86 H Pulse Oximetry 98 100 100 05/13/18 22:25 05/13/18 23:00 05/14/18 00:00 Temperature 98.0 F Pulse Rate 83 90 Respiratory Rate 22 29 H Blood Pressure 169/93 H 187/92 H Pulse Oximetry 100 97 99 05/14/18 00:04 05/14/18 00:20 05/14/18 00:41 Temperature 97.7 F 98.0 F Pulse Rate 91 H 79 Respiratory Rate 18 Blood Pressure 187/92 H 174/89 H Pulse Oximetry 92 L 100 99 05/14/18 01:11 05/14/18 01:20 05/14/18 01:40 Temperature Pulse Rate 88 77 66 Respiratory Rate 36 H 27 H 19 Blood Pressure 168/79 H 159/75 H Pulse Oximetry 100 97 99 05/14/18 02:00 05/14/18 02:30 05/14/18 03:00 Temperature Pulse Rate 74 66 68 Respiratory Rate 25 H 18 18 Blood Pressure 170/86 H 169/81 H 170/81 H Pulse Oximetry 98 99 96 05/14/18 03:30 05/14/18 03:44 05/14/18 04:00 Temperature 98.3 F Pulse Rate 71 66 Respiratory Rate 24 20 Blood Pressure 170/88 H 164/73 H Pulse Oximetry 97 96 97 05/14/18 04:30 05/14/18 05:00 05/14/18 05:01 Temperature Pulse Rate 63 78 79 Respiratory Rate 19 24 29 H Blood Pressure 148/68 H 153/70 H Pulse Oximetry 97 94 L 95 05/14/18 05:30 05/14/18 06:00 05/14/18 06:04 Temperature Pulse Rate 78 73 79 Respiratory Rate 26 H 18 22 Blood Pressure 162/90 H 195/82 H 167/81 H Pulse Oximetry 97 95 98 05/14/18 06:30 05/14/18 07:00 05/14/18 07:30 Temperature Pulse Rate 72 77 84 Respiratory Rate 18 23 30 H Blood Pressure 175/79 H 166/90 H 167/79 H Pulse Oximetry 98 97 92 L 05/14/18 07:43 05/14/18 08:00 05/14/18 08:05 Temperature Pulse Rate 85 83 84 Respiratory Rate 19 23 Blood Pressure 167/76 H Pulse Oximetry 96 94 L 92 L 05/14/18 08:17 Temperature 98.4 F Pulse Rate 84 Respiratory Rate 20 Blood Pressure 166/74 H Pulse Oximetry 94 L Intake & Output 05/13/18 05/14/18 05/14/18 18:59 06:59 18:59 Intake Total 35 / 35 900 / 900 100 / 100 Output Total 650 / 650 2775 / 2775 Balance -615 / -615 -1875 / -1875 100 / 100 Weight 85.5 kg 79.5 kg Intake: IV 35 / 35 100 / 100 100 / 100 Protonix Inj 80 MG In NS Inj 100 / 100 100 ML @ 10 mls/hr IV.CONT CONT KIRAN Rx#:[id number] Protonix Inj 80 MG In NS Inj 35 35 / 35 ML @ 420 mls/hr IV.SIG BOLUS ONE Rx#:[id number] KCl 20 mEq Premix Inj 20 meq In 100 / 100 100 ml @ 50 mls/hr IV.SIG Q2H PRN Rx#:[id number] Intake (Blood Product) Amt 800 / 800 Rbc As-3 Leukoreduced Unit 400 / 400 [id number] Rbc As-3 Leukoreduced Unit 400 / 400 [id number] Output: Urine 650 / 650 2775 / 2775 Other: # Voids 1 Weight On Admission 88 kg Result Diagrams: 05/14/18 03:41 05/14/18 03:41 Other Results: Laboratory Results - last 12 hr 05/13/18 05/13/18 05/13/18 16:05 23:10 23:50 WBC RBC Hgb Hct MCV MCH MCHC RDW Plt Count MPV Neut % (Auto) Lymph % (Auto) [place] % (Auto) Eos % (Auto) Baso % (Auto) Neut # (Auto) Lymph # (Auto) [place] # (Auto) Eos # (Auto) Baso # (Auto) WBC Differential Differential Comment Sodium Potassium Chloride Carbon Dioxide Anion Gap BUN Creatinine Estimated GFR Random Glucose Calcium Nasal Screen MRSA (PCR) Not detected MTS Gel Crossmatch See Detail See Detail 05/14/18 05/14/18 03:41 03:41 WBC 7.8 RBC 4.24 L Hgb 9.9 L D Hct 31.0 L MCV 73.0 L MCH 23.3 L MCHC 31.9 L RDW 22.9 H D Plt Count 262 MPV 8.4 Neut % (Auto) 89.1 H Lymph % (Auto) 9.2 [place] % (Auto) 1.5 Eos % (Auto) 0.0 Baso % (Auto) 0.2 Neut # (Auto) 7.0 Lymph # (Auto) 0.7 L [place] # (Auto) 0.1 Eos # (Auto) 0.0 Baso # (Auto) 0.0 WBC Differential . Differential Comment Auto diff final Sodium 140 Potassium 3.3 L Chloride 103 Carbon Dioxide 24.5 Anion Gap 13 BUN 17 Creatinine 1.51 H Estimated GFR 45 L Random Glucose 158 H Calcium 8.9 Nasal Screen MRSA (PCR) MTS Gel Crossmatch Imaging: Chest X-Ray 05/13/18 15:25 CONCLUSION: Probable congestive failure superimposed over chronic fibrosis. Inflammatory process cannot be entirely excluded. Objective Remarks: GENERAL: Patient is 72 yo lying in be din NAD SKIN: Warm and dry. HEAD: Normocephalic. EYES: No scleral icterus. No injection or drainage. NECK: Supple, trachea midline. No JVD or lymphadenopathy. CARDIOVASCULAR: Regular rate and rhythm without murmurs, gallops, or rubs. RESPIRATORY: Breath sounds equal bilaterally. No accessory muscle use. GASTROINTESTINAL: Abdomen soft, non-tender, nondistended. MUSCULOSKELETAL: No cyanosis, or edema. Neuro: awake and alert Assessment and Plan - Assessment and Plan Plan: Plan by systems: Neurologic: Awake and alert Frequent neurochecks Avoid long-acting sedatives Respiratory: Acute hypoxic respiratory failure Pulmonary edema Continue with oxygen keep sats >92% Bronchodilators BIPAP PRN for resp distress On Solumederol 40mg Q6 Check CT chest ? chronic ILD. Cardiovascular: Acute severe congestive heart failure exacerbation, unknown type Coronary artery disease Atypical angina/possible unstable angina based on clinical history Hypertension Monitor HR and BP keep MAP>65mmHg. Place on Cardizem 60mg Q6 Cardiology is following. Planned elective cath today For 2D echo to eval LV function On Lasix 40mg BID Renal: Acute kidney injury Monitor renal function, I/O's, avoid nephrotoxins Continue Lasix 40mg BID GI: Possible GI bleeding N.p.o. PPI drip GI consulted Heme/ID: Acute anemia secondary to blood loss s/p transfusion 2 units PRBC overnight Hgb 9.9 this morning from 7.2 Avoid anticoagulation No infectious etiology suspected at this time Endocrine: Diabetes -- SSI Prophylaxis: GI Prophylaxis PPI drip DVT Prophylaxis -- SCDs Hold pharmacologic DVT prophylaxis in the setting of presumed GI bleeding Lines: Peripheral IVs Level 2
--- NOTE | 2018-05-14 10:04 | XR ---
EXAM DATE: 05/14/2018 10:00 AM EST AGE/SEX: 72 years / Male INDICATIONS: Short of breath. CLINICAL DATA: This is the patient's subsequent encounter. Patient reports that signs and symptoms h ave been present for 1 day and indicates a pain score of 0/10. MEDICAL/SURGICAL HISTORY: None. None. COMPARISON: HPO, CHEST 1V SINGLE AP, 05/13/2018. . FINDINGS: Single view of the chest symmetric and diffuse interstitial prominence throughout the lungs improved from the . The heart and mediastinum are unremarkable. There is no visible pneumothorax. There ma y be some minimal airspace disease in the right lung base. CONCLUSION: Widespread interstitial lung disease with overall improved aeration since the . Questionable smal l residual infiltrate right lung base. Electronically signed by: Bijan Eastman MD Board Certified Radiologist 05/14/2018 10:02 AM EST
--- NOTE | 2018-05-14 11:19 | P.CONGI ---
History of Present Illness Consult date: 05/14/18 Consult reason: GI bleed CHF Chief complaint: Anemia,Acute CHF History of Present Illness: Patient is a pleasant 72-year-old male with past medical history significant for coronary artery disease, atrial fibrillation and hypertension. There is no significant surgical history. Patient presented to [facility] emergency department with report of increasing shortness of breath over the last week. Patient also reports that he was scheduled for an elective left heart catheterization today by his forging die sinker. Upon consultation, patient endorses that he has been having worsening left shoulder and bilateral lower extremity pain for the past 2 weeks. He is currently on Eliquis and it has been held for the last 5 days. He states that he has been experiencing increasing shortness of breath over the last week with minimal exertion. Chart review reveals that patient arrived in respiratory distress with acute hypoxemia. Patient was placed on BiPAP and chest x-ray revealed infiltrates bilaterally suggesting pulmonary edema. Of note, BNP is 774. Hemoglobin on admission was 7.2 hematocrit 23.8. This a.m. hemoglobin 9.9 hematocrit 31.0 posttransfusion 2 units of packed RBCs. Patient denies any obvious bleeding. Denies hematochezia or hematemesis. Denies melena stools. Patient states last colonoscopy done 8-9 years ago revealed benign polyps to the best of his recollection. Denies any past history of having had an EGD. Endorses smoking 1 pack/day of cigarettes and denies any alcohol use. Patient is notably with labored breathing. 5 L nasal cannula saturation 93-96%. Our service has been consulted to evaluate patient for GI bleeding Review of Systems All other systems reviewed negative except as stated in HPI PMFSH - History History Provided By: Patient, Medical Record - Medical History Medical History: Medical History (Last Reviewed 05/13/18 @ 23:53 by Fabrizio Fenton MD) Afib HTN (hypertension) - Family History Family History: Family History (Last Reviewed 05/13/18 @ 23:53 by Fabrizio Fenton MD) Other Family history non-contributory - Tobacco History Second Hand Smoke Exposure: Yes Tobacco Use In Past 30 Days: Yes Smoking Status: Current every day smoker Tobacco Type: Cigarettes - Alcohol History How Often Do You Have a Drink Containing Alcohol: Never - Substance Use History Substance History: No History of Abuse - Travel History Recent Travel in the [facility] Within the Last 8 Weeks: No Recent Travel Out of the Country Within the Last 8 Weeks: No - Immunization History Tetanus Immunization: >5 Years Hx Influenza Vaccine This Season: No Medications and Allergies Active Medications: Active Medications Acetaminophen (Tylenol) 650 mg PO Q4H PRN PRN Reason: Temp > 100.4 Al Hydroxide/Mg Hydroxide (Milk Of [place] Liq) 30 ml PO Q12H PRN PRN Reason: Mild Constipation Albuterol (Duoneb Neb (Prn)) 1 ampul NEB Q2HR NEB PRN PRN Reason: SHORTNESS OF BREATH/WHEEZING Albuterol (Duoneb Neb (Bree)) 1 ampul NEB Q6HR WHILE AWAKE NEB BREE Last Admin: 05/14/18 07:40 Dose: 1 ampul Bisacodyl (Dulcolax Supp) 10 mg RECTAL DAILY PRN PRN Reason: SEVERE CONSITIPATION Chlorhexidine Gluconate (Chlorhexidine 2% Cloth) 3 pack TOPICAL DAILY@0400 BREE Stop: 05/19/18 03:59 Last Admin: 05/14/18 04:48 Dose: 3 pack Chlorhexidine Gluconate (Chlorhexidine 2% Cloth) 3 pack TOPICAL DAILY@0400 PRN PRN Reason: Extra cloth needed Stop: 05/19/18 03:59 Diltiazem HCl (Cardizem) 60 mg PO QID BREE Furosemide (Lasix Inj) 40 mg IV.PUSH BID@0900,1800 [facility] Last Admin: 05/14/18 08:18 Dose: 40 mg Hydralazine HCl (Apresoline Inj) 10 mg IV.PUSH Q30M PRN PRN Reason: SBP>160, DBP>90 Last Admin: 05/14/18 08:20 Dose: 10 mg Pantoprazole Sodium 80 mg/ (Sodium Chloride) 100 mls @ 10 mls/hr IV.CONT CONT [facility] Last Admin: 05/14/18 01:59 Dose: 10 mls/hr Magnesium Sulfate 4 gm/ Sodium (Chloride) 100 mls @ 50 mls/hr IV.SIG UNSCH PRN PRN Reason: For Magnesium 0.9 - 1.1 mg/dL Magnesium Sulfate 2 gm/ Sodium (Chloride) 100 mls @ 50 mls/hr IV.SIG UNSCH PRN PRN Reason: For Magnesium 1.2 - 1.6 mg/dL Potassium Chloride (Kcl 40 Meq Premix Inj) 40 meq in 100 mls @ 25 mls/hr IV.SIG Q2H PRN PRN Reason: For Potassium 2.8 - 3.2 mEq/L Potassium Chloride (Kcl 20 Meq Premix Inj) 20 meq in 100 mls @ 50 mls/hr IV.SIG Q2H PRN PRN Reason: For Potassium 3.3 - 3.5 mEq/L Last Admin: 05/14/18 08:27 Dose: 25 mls/hr Potassium Chloride (Kcl 40 Meq Premix Inj) 40 meq in 100 mls @ 25 mls/hr IV.SIG UNSCH PRN PRN Reason: For Potassium 3.3 - 3.5 mEq/L Potassium Phosphate 30 mmol/ (Sodium Chloride) 260 mls @ 42 mls/hr IV.SIG UNSCH PRN PRN Reason: SEE LABEL COMMENTS Sodium Phosphate 30 mmol/ (Sodium Chloride) 260 mls @ 42 mls/hr IV.SIG UNSCH PRN PRN Reason: For Phosphorus < 2.5 mg/dL Potassium Chloride (Kcl 20 Meq Premix Inj) 20 meq in 100 mls @ 50 mls/hr IV.SIG Q2H PRN PRN Reason: For Potassium 2.8 - 3.2 mEq/L Lactulose (Lactulose Liq) 30 ml PO DAILY PRN PRN Reason: SEVERE CONSITIPATION Magnesium Oxide (Mag-Ox) 800 mg PO UNSCH PRN PRN Reason: For Magnesium 1.2 - 1.6 mg/dL Methylprednisolone Sodium Succinate (Solumedrol Inj) 40 mg IV.PUSH Q6H BREE Last Admin: 05/14/18 09:30 Dose: 40 mg Ondansetron HCl (Zofran Inj) 4 mg IV.PUSH Q6H PRN PRN Reason: NAUSEA OR VOMITING Potassium Chloride (Kcl Liq) 40 meq PO UNSCH PRN PRN Reason: Potassium level 3.3-3.5 mEq/L Potassium Chloride (Kcl Liq) 40 meq PO UNSCH PRN PRN Reason: POTASSIUM LESS THAN 3.5 Potassium Phosphate (K-Phos Original) 2,000 mg PO Q4H PRN PRN Reason: Phosphorus Less Than 2.5 mg/dL Potassium Phosphate (K-Phos Original) 2,000 mg PO UNSCH PRN PRN Reason: SEE LABEL COMMENTS Sennosides (Senokot) 17.2 mg PO Q12H PRN PRN Reason: Moderate Constipation Sodium Chloride (Ns Flush) 2 ml IV.FLUSH BID BREE Last Admin: 05/14/18 08:17 Dose: 2 ml Sodium Chloride (Ns Flush) 2 ml IV.FLUSH PRN PRN PRN Reason: FLUSH AFTER USING IV ACCESS Allergies Allergy/AdvReac Type Severity Reaction Status Date / Time ciprofloxacin [From Cipro] Allergy Intermediate Muscle Pain Verified 05/13/18 15 :38 Home Medications Medication Instructions Recorded Confirmed Type Other Unknown Meds 05/13/18 History apixaban [Eliquis] 5 mg PO BID 05/13/18 05/13/18 History amiodarone 200 mg PO DAILY 05/14/18 05/14/18 History doxazosin 4 mg PO DAILY 05/14/18 05/14/18 History isosorbide mononitrate 30 mg PO DAILY 05/14/18 05/14/18 History prednisone 1 mg PO DAILY 05/14/18 05/14/18 History Exam Vital signs: Vital Signs 05/13/18 15:20 05/13/18 15:25 05/13/18 16:06 Temperature 97.6 F Pulse Rate 89 89 Respiratory Rate 24 26 H Blood Pressure 188/92 H 185/82 H Pulse Oximetry 96 95 05/13/18 16:29 05/13/18 16:35 05/13/18 16:41 Temperature Pulse Rate Respiratory Rate 28 H Blood Pressure 182/86 H Pulse Oximetry 93 L 98 98 05/13/18 16:42 05/13/18 16:47 05/13/18 16:55 Temperature Pulse Rate 117 H 116 H Respiratory Rate 30 H 32 H Blood Pressure Pulse Oximetry 99 05/13/18 17:05 05/13/18 17:37 05/13/18 18:10 Temperature Pulse Rate 101 H 88 75 Respiratory Rate 28 H 26 H 24 Blood Pressure 184/107 H 175/86 H 151/61 H Pulse Oximetry 99 98 98 05/13/18 18:43 05/13/18 19:08 05/13/18 19:41 Temperature Pulse Rate 75 83 83 Respiratory Rate 24 20 16 Blood Pressure 150/76 H 165/82 H Pulse Oximetry 100 100 95 05/13/18 20:00 05/13/18 20:20 05/13/18 20:35 Temperature 98.7 F Pulse Rate 82 82 Respiratory Rate 20 Blood Pressure 167/88 H Pulse Oximetry 98 100 05/13/18 20:40 05/13/18 21:01 05/13/18 21:53 Temperature 97.9 F Pulse Rate 81 83 81 Respiratory Rate 22 20 16 Blood Pressure 165/81 H 156/80 H 164/86 H Pulse Oximetry 98 100 100 05/13/18 22:25 05/13/18 23:00 05/14/18 00:00 Temperature 98.0 F Pulse Rate 83 90 Respiratory Rate 22 29 H Blood Pressure 169/93 H 187/92 H Pulse Oximetry 100 97 99 05/14/18 00:04 05/14/18 00:20 05/14/18 00:41 Temperature 97.7 F 98.0 F Pulse Rate 91 H 79 Respiratory Rate 18 Blood Pressure 187/92 H 174/89 H Pulse Oximetry 92 L 100 99 05/14/18 01:11 05/14/18 01:20 05/14/18 01:40 Temperature Pulse Rate 88 77 66 Respiratory Rate 36 H 27 H 19 Blood Pressure 168/79 H 159/75 H Pulse Oximetry 100 97 99 05/14/18 02:00 05/14/18 02:30 05/14/18 03:00 Temperature Pulse Rate 74 66 68 Respiratory Rate 25 H 18 18 Blood Pressure 170/86 H 169/81 H 170/81 H Pulse Oximetry 98 99 96 05/14/18 03:30 05/14/18 03:44 05/14/18 04:00 Temperature 98.3 F Pulse Rate 71 66 Respiratory Rate 24 20 Blood Pressure 170/88 H 164/73 H Pulse Oximetry 97 96 97 05/14/18 04:30 05/14/18 05:00 05/14/18 05:01 Temperature Pulse Rate 63 78 79 Respiratory Rate 19 24 29 H Blood Pressure 148/68 H 153/70 H Pulse Oximetry 97 94 L 95 05/14/18 05:30 05/14/18 06:00 05/14/18 06:04 Temperature Pulse Rate 78 73 79 Respiratory Rate 26 H 18 22 Blood Pressure 162/90 H 195/82 H 167/81 H Pulse Oximetry 97 95 98 05/14/18 06:30 05/14/18 07:00 05/14/18 07:30 Temperature Pulse Rate 72 77 84 Respiratory Rate 18 23 30 H Blood Pressure 175/79 H 166/90 H 167/79 H Pulse Oximetry 98 97 92 L 05/14/18 07:43 05/14/18 08:00 05/14/18 08:05 Temperature Pulse Rate 85 83 84 Respiratory Rate 19 23 Blood Pressure 167/76 H Pulse Oximetry 96 94 L 92 L 05/14/18 08:17 05/14/18 08:30 05/14/18 09:00 Temperature 98.4 F 98.2 F Pulse Rate 84 88 85 Respiratory Rate 20 41 H 23 Blood Pressure 166/74 H 156/72 H 159/73 H Pulse Oximetry 94 L 95 94 L 05/14/18 09:30 05/14/18 10:00 05/14/18 10:14 Temperature Pulse Rate 85 83 89 Respiratory Rate 22 23 Blood Pressure 153/64 H 129/68 Pulse Oximetry 95 94 L Intake & Output 05/13/18 05/14/18 05/14/18 18:59 06:59 18:59 Intake Total 35 / 35 900 / 900 100 / 100 Output Total 650 / 650 2775 / 2775 Balance -615 / -615 -1875 / -1875 100 / 100 Weight 85.5 kg 79.5 kg Intake: IV 35 / 35 100 / 100 100 / 100 Protonix Inj 80 MG In NS Inj 100 / 100 100 ML @ 10 mls/hr IV.CONT CONT BREE Rx#:[id number] Protonix Inj 80 MG In NS Inj 35 35 / 35 ML @ 420 mls/hr IV.SIG BOLUS ONE Rx#:[id number] KCl 20 mEq Premix Inj 20 meq In 100 / 100 100 ml @ 50 mls/hr IV.SIG Q2H PRN Rx#:[id number] Intake (Blood Product) Amt 800 / 800 Rbc As-3 Leukoreduced Unit 400 / 400 [id number] Rbc As-3 Leukoreduced Unit 400 / 400 [id number] Output: Urine 650 / 650 2775 / 2775 Other: # Voids 1 Weight On Admission 88 kg - Constitutional chronically ill appearing, cooperative - Routine HEENT Exam Head: Present: normocephalic ENT: Present: mucous membranes dry - Routine Neck Exam Present: supple, trachea midline. Absent: tracheal deviation - Routine Respiratory Exam Present: accessory muscle use, crackles Comments: Crackles at bilateral bases - Routine Abdominal Exam Present: soft, normoactive bowel sounds. Absent: tenderness, distended - Routine Extremities Exam Present: pulses intact. Absent: edema - Routine Skin Exam Present: dry, warm - Routine Neurological Exam Present: alert, oriented X3 Results - Labs CBC & Chem 7: 05/14/18 18:08 05/14/18 18:08 Labs: Laboratory Results - last 24 hr 05/13/18 05/13/18 05/13/18 15:30 15:30 15:30 CBC w Diff Slide review pending WBC 7.5 RBC 3.32 L Hgb 7.2 L Hct 23.8 L MCV 71.7 L MCH 21.6 L MCHC 30.1 L RDW 20.3 H Plt Count 324 MPV 9.4 Neut % (Auto) 67.3 Lymph % (Auto) 21.7 [place] % (Auto) 8.3 H Eos % (Auto) 2.0 Baso % (Auto) 0.7 Neut # (Auto) 5.0 Lymph # (Auto) 1.6 [place] # (Auto) 0.6 Eos # (Auto) 0.2 Baso # (Auto) 0.1 WBC Differential . Diff Scan Auto diff confirmed Differential Comment . Platelet Estimate Normal Platelet Morphology Normal Target Cells 1+ H Ovalocytes 1+ H PT 10.5 INR 1.0 APTT 26.8 Puncture Site Patient Temperature O2 Saturation ABG pH ABG pCO2 ABG pO2 ABG HCO3 ABG O2 Content ABG Base Excess ABG Methemoglobin Paco Test Hemoglobin Carboxyhemoglobin O2 Delivery Device Vent Setting Inspired O2 Critical Value Sodium 139 Potassium 3.7 Chloride 109 H Carbon Dioxide 22.2 Anion Gap 8 BUN 15 Creatinine 1.40 H Estimated GFR 50 L Random Glucose 98 Calcium 8.8 Magnesium 2.2 Total Bilirubin 0.4 AST 18 ALT 21 Alkaline Phosphatase 99 Troponin I 0.03 B-Natriuretic Peptide Total Protein 8.6 H Albumin 3.5 Urine Color Urine Clarity Urine pH Ur Specific [place] Urine Protein Urine Glucose (UA) Urine Ketones Urine Occult Blood Urine Nitrate Urine Bilirubin Urine Urobilinogen Ur Leukocyte Esterase Urine RBC Urine WBC Urine Mucus Micro UA Comment Ur Microscopic Review Urine Culture Comments Nasal Screen MRSA (PCR) Blood Type Antibody Screen MTS Gel Crossmatch 05/13/18 05/13/18 05/13/18 15:30 15:30 16:05 CBC w Diff WBC RBC Hgb Hct MCV MCH MCHC RDW Plt Count MPV Neut % (Auto) Lymph % (Auto) [place] % (Auto) Eos % (Auto) Baso % (Auto) Neut # (Auto) Lymph # (Auto) [place] # (Auto) Eos # (Auto) Baso # (Auto) WBC Differential Diff Scan Differential Comment Platelet Estimate Platelet Morphology Target Cells Ovalocytes PT INR APTT Puncture Site Patient Temperature O2 Saturation ABG pH ABG pCO2 ABG pO2 ABG HCO3 ABG O2 Content ABG Base Excess ABG Methemoglobin Paco Test Hemoglobin Carboxyhemoglobin O2 Delivery Device Vent Setting Inspired O2 Critical Value Sodium Potassium Chloride Carbon Dioxide Anion Gap BUN Creatinine Estimated GFR Random Glucose Calcium Magnesium Total Bilirubin AST ALT Alkaline Phosphatase Troponin I B-Natriuretic Peptide 774 H Total Protein Albumin Urine Color Urine Clarity Urine pH Ur Specific [place] Urine Protein Urine Glucose (UA) Urine Ketones Urine Occult Blood Urine Nitrate Urine Bilirubin Urine Urobilinogen Ur Leukocyte Esterase Urine RBC Urine WBC Urine Mucus Micro UA Comment Ur Microscopic Review Urine Culture Comments Nasal Screen MRSA (PCR) Blood Type B Positive Antibody Screen Negative MTS Gel Crossmatch See Detail 05/13/18 05/13/18 05/13/18 17:30 17:35 23:10 CBC w Diff WBC RBC Hgb Hct MCV MCH MCHC RDW Plt Count MPV Neut % (Auto) Lymph % (Auto) [place] % (Auto) Eos % (Auto) Baso % (Auto) Neut # (Auto) Lymph # (Auto) [place] # (Auto) Eos # (Auto) Baso # (Auto) WBC Differential Diff Scan Differential Comment Platelet Estimate Platelet Morphology Target Cells Ovalocytes PT INR APTT Puncture Site Left radial Patient Temperature 98.6 O2 Saturation 93 ABG pH 7.42 ABG pCO2 32 L ABG pO2 84 ABG HCO3 21 L ABG O2 Content 9.6 L ABG Base Excess -3.2 L ABG Methemoglobin 1.3 Paco Test Present Hemoglobin 7.2 L* Carboxyhemoglobin 2.3 O2 Delivery Device Bipap Vent Setting Ipap 15/epap 5 Inspired O2 50 Critical Value Yes Sodium Potassium Chloride Carbon Dioxide Anion Gap BUN Creatinine Estimated GFR Random Glucose Calcium Magnesium Total Bilirubin AST ALT Alkaline Phosphatase Troponin I B-Natriuretic Peptide Total Protein Albumin Urine Color Yellow Urine Clarity Clear Urine pH 6.5 Ur Specific [place] 1.020 Urine Protein 100 H Urine Glucose (UA) Negative Urine Ketones Negative Urine Occult Blood Negative Urine Nitrate Negative Urine Bilirubin Negative Urine Urobilinogen 0.2 Ur Leukocyte Esterase Negative Urine RBC 0-3 Urine WBC 0-5 Urine Mucus Rare H Micro UA Comment Culture not ind Ur Microscopic Review Microscopic reviewed Urine Culture Comments Culture not ind Nasal Screen MRSA (PCR) Not detected Blood Type Antibody Screen MTS Gel Crossmatch 05/13/18 05/14/18 05/14/18 23:50 03:41 03:41 CBC w Diff WBC 7.8 RBC 4.24 L Hgb 9.9 L D Hct 31.0 L MCV 73.0 L MCH 23.3 L MCHC 31.9 L RDW 22.9 H D Plt Count 262 MPV 8.4 Neut % (Auto) 89.1 H Lymph % (Auto) 9.2 [place] % (Auto) 1.5 Eos % (Auto) 0.0 Baso % (Auto) 0.2 Neut # (Auto) 7.0 Lymph # (Auto) 0.7 L [place] # (Auto) 0.1 Eos # (Auto) 0.0 Baso # (Auto) 0.0 WBC Differential . Diff Scan Differential Comment Auto diff final Platelet Estimate Platelet Morphology Target Cells Ovalocytes PT INR APTT Puncture Site Patient Temperature O2 Saturation ABG pH ABG pCO2 ABG pO2 ABG HCO3 ABG O2 Content ABG Base Excess ABG Methemoglobin Paco Test Hemoglobin Carboxyhemoglobin O2 Delivery Device Vent Setting Inspired O2 Critical Value Sodium 140 Potassium 3.3 L Chloride 103 Carbon Dioxide 24.5 Anion Gap 13 BUN 17 Creatinine 1.51 H Estimated GFR 45 L Random Glucose 158 H Calcium 8.9 Magnesium Total Bilirubin AST ALT Alkaline Phosphatase Troponin I B-Natriuretic Peptide Total Protein Albumin Urine Color Urine Clarity Urine pH Ur Specific [place] Urine Protein Urine Glucose (UA) Urine Ketones Urine Occult Blood Urine Nitrate Urine Bilirubin Urine Urobilinogen Ur Leukocyte Esterase Urine RBC Urine WBC Urine Mucus Micro UA Comment Ur Microscopic Review Urine Culture Comments Nasal Screen MRSA (PCR) Blood Type Antibody Screen MTS Gel Crossmatch See Detail - Imaging Impressions Chest X-Ray 05/13/18 15:25 CONCLUSION: Probable congestive failure superimposed over chronic fibrosis. Inflammatory process cannot be entirely excluded. Chest X-Ray 05/14/18 09:01 CONCLUSION: Widespread interstitial lung disease with overall improved aeration since the . Questionable small residual infiltrate right lung base. Assessment and Plan (1) Acute blood loss anemia Status: Acute Code(s): D62 - Acute posthemorrhagic anemia - Plan Patient is a pleasant 72-year-old male with past medical history significant for coronary artery disease, atrial fibrillation and hypertension. There is no significant surgical history. Patient presented to [facility] emergency department with report of increasing shortness of breath over the last week. Patient also reports that he was scheduled for an elective left heart catheterization today by his forging die sinker. Upon consultation, patient endorses that he has been having worsening left shoulder and bilateral lower extremity pain for the past 2 weeks. He is currently on Eliquis and it has been held for the last 5 days. He states that he has been experiencing increasing shortness of breath over the last week with minimal exertion. Chart review reveals that patient arrived in respiratory distress with acute hypoxemia. Patient was placed on BiPAP and chest x-ray revealed infiltrates bilaterally suggesting pulmonary edema. Of note, BNP is 774. Hemoglobin on admission was 7.2 hematocrit 23.8. This a.m. hemoglobin 9.9 hematocrit 31.0 posttransfusion 2 units of packed RBCs. Patient denies any obvious bleeding. Denies hematochezia or hematemesis. Denies melena stools. Patient states last colonoscopy done 8-9 years ago revealed benign polyps to the best of his recollection. Denies any past history of having had an EGD. Endorses smoking 1 pack/day of cigarettes and denies any alcohol use. Patient is notably with labored breathing. 5 L nasal cannula saturation 93-96%. Our service has been consulted to evaluate patient for GI bleeding GI bleed Congestive heart failure Pulmonary edema Coronary artery disease on Eliquis--planned left heart catheterization Plan -N.p.o. -May advance to clear liquid diet if okay with cardiology -Will require cardiology consult for endoscopic procedures -Monitor hemoglobin and hematocrit--serial levels ordered -Monitor for any active bleeding -Hold Eliquis -Transfuse as needed -Continue pantoprazole infusion -Supportive care -Further recommendation to follow This patient has been seen by myself and Dr. Calles and this note is written on his behalf - Attending Attestation Dr. Calles
[2018-05-14] MEDS: dilTIAZem 60 MG Tablet PO SCH ×3 (12:08→22:00)
[2018-05-14 13:24] LABS: Hematocrit 31.8 % (39.0-51.0); Hemoglobin 9.9 gm/dL (13.0-17.0)
[2018-05-14 19:13] LABS: Hematocrit 33.1 % (39.0-51.0); Hemoglobin 10.1 gm/dL (13.0-17.0)
[2018-05-14 19:22] LABS: Alanine Aminotransferase 20 U/L (12-78); Albumin 3.6 g/dL (3.4-5.0); Anion Gap 12 meq/L (5-15); Aspartate Aminotransferase 18 U/L (15-37); Blood Urea Nitrogen 25 mg/dL (7-18); Calcium 9.1 mg/dL (8.5-10.1); Carbon Dioxide 23.5 meq/L (21.0-32.0); Chloride 105 meq/L (98-107); Glomerular Filtration Rate 45 mL/min (>89); Glucose,Random 135 mg/dL (74-106); Potassium 3.1 meq/L (3.5-5.1); Sodium 140 meq/L (136-145)
[2018-05-14 19:25] LABS: Alkaline Phosphatase 101 U/L (45-117); Total Protein 9.1 g/dL (6.4-8.2)
--- NOTE | 2018-05-14 19:54 | ECG ---
Date Performed: 05/13/2018 Time Performed: 15:19:12 PTAGE: 72 years EKG: Sinus rhythm NONSPECIFIC ST & T-WAVE ABNORMALITY BORDERLINE ECG NO PREVIOUS TRACING DOCTOR: Gladys Mejia Interpretating Date/Time 05/14/2018 19:52:48
--- NOTE | 2018-05-14 20:40 | CT ---
EXAM DATE: 05/14/2018 8:34 PM EST AGE/SEX: 72 years / Male INDICATIONS: Shortness of breath. CLINICAL DATA: This is the patient's initial encounter. Patient reports that signs and symptoms have been present for 1 day and indicates a pain score of 5/10. MEDICAL/SURGICAL HISTORY: Hypertension. Afib. None. RADIATION DOSE: 9.59 CTDI (mGy) COMPARISON: No prior exams available for comparison. TECHNIQUE: Multiple contiguous axial images were obtained through the chest without contrast. Image s were obtained in suspended respiration using multiple row detector helical technique. Using automa lesvia exposure control and adjustment of the mA and/or kV according to patient size, radiation dose was kept as low as reasonably achievable to obtain optimal diagnostic quality images. DICOM format imag e data is available electronically for review and comparison. FINDINGS: Lungs: Coarse interstitial changes are seen in both lungs with trace pleural effusion and cardiomega ly all suspicious for congestive failure. Moderate coronary disease is noted. No suspicious lung nodu les are identified. Mediastinum: Heart is enlarged moderate coronary calcifications. Moderate vascular opacifications ar e noted There is no axillary or mediastinal adenopathy There is moderate bowel wall thickening in the collapsed stomach, otherwise the upper abdominal kyle nts visualized are grossly normal. CONCLUSION: 1. Bowel wall thickening collapsed stomach 2. Moderate congestive failure Electronically signed by: August Mullen MD Board Certified Radiologist 05/14/2018 8:39 PM EST
[2018-05-15] MEDS: Pantoprazole Inj 80 MG in Sodium Chlor 0.9% Inj 100 ML IV.CONT SCH ×2 (00:48→11:09)
[2018-05-15] MEDS: MethylPREDNISolone Sod Succinate Inj 40 MG/ML Vial IV.PUSH SCH ×2 (04:47→10:12)
[2018-05-15] MEDS: Chlorhexidine Gluconate 2% 1 Pack (2 Cloths) TOPICAL SCH (04:48)
[2018-05-15 04:59] LABS: Baso % (Auto) 0.1 % (0.0-2.0); Hematocrit 31.5 % (39.0-51.0); Hemoglobin 9.8 gm/dL (13.0-17.0); Lymph # (Auto) 0.6 th/mm3 (1.0-4.8); Lymph % (Auto) 3.4 % (9.0-44.0); Mean Corpuscular HGB Conc 31.2 % (32.0-36.0); Mean Corpuscular Hemoglobin 22.7 pg (27.0-34.0); Mean Corpuscular Volume 72.9 fL (80.0-100.0); Mean Platelet Volume 8.7 fL (7.0-11.0); Mono # (Auto) 0.3 th/mm3 (0.0-0.9); Mono % (Auto) 1.7 % (0.0-8.0); Neut # (Auto) 15.8 th/mm3 (1.8-7.7); Neut % (Auto) 94.8 % (16.0-70.0); Platelet Count 268 th/mm3 (150-450); Red Blood Count 4.32 mil/mm3 (4.50-5.90); Red Cell Distribution Width 22.7 % (11.6-17.2); White Blood Count 16.6 th/mm3 (4.0-11.0)
[2018-05-15 05:22] LABS: Albumin 3.5 g/dL (3.4-5.0); Anion Gap 12 meq/L (5-15); Aspartate Aminotransferase 17 U/L (15-37); Blood Urea Nitrogen 35 mg/dL (7-18); Calcium 9.3 mg/dL (8.5-10.1); Carbon Dioxide 24.6 meq/L (21.0-32.0); Chloride 105 meq/L (98-107); Glomerular Filtration Rate 42 mL/min (>89); Glucose,Random 147 mg/dL (74-106); Magnesium 2.6 mg/dL (1.5-2.5); Potassium 3.1 meq/L (3.5-5.1); Sodium 142 meq/L (136-145)
[2018-05-15 05:28] LABS: Alanine Aminotransferase 19 U/L (12-78); Alkaline Phosphatase 95 U/L (45-117); Phosphorus 3.8 mg/dL (2.5-4.9); Total Protein 8.9 g/dL (6.4-8.2)
[2018-05-15] MEDS: dilTIAZem 60 MG Tablet PO SCH ×2 (08:02→12:09)
[2018-05-15] MEDS: Potassium Chlor 20 mEq Premix 20 MEQ/100 ML PIGGYBACK IV.SIG PRN ×2 (08:03→10:12)
--- NOTE | 2018-05-15 08:09 | MB ---
cc: Andry Baker MD DATE: 05/15/2018 REASON FOR CONSULTATION: Severe anemia, preoperative cardiac clearance. HISTORY OF PRESENT ILLNESS: This is a 72-year-old male who had a past medical history of atrial fibrillation on Eliquis and hypertension. The patient had an abnormal nuclear stress test in the office and he was scheduled to undergo left heart catheterization. His Eliquis was held for 5 days. I received his pre-cath blood test labs which showed severe anemia. The patient came to [facility] for further evaluation and management. He was complaining of exertional shortness of breath. Initial workup included chest x-ray, which was suggestive of congestive heart failure. His hemoglobin was down to 6 g. The patient received 2 units of blood transfusion. His hemoglobin this morning is 9.8. He was also placed on 40 mg of Lasix twice a day. This morning, he is asymptomatic. He denies unprovoked or exertional chest pain. He also denies PND, orthopnea, lower extremity edema, or recent weight gain. ALLERGIES: CIPROFLOXACIN. SOCIAL HISTORY: Nonsmoker, nondrinker. FAMILY HISTORY: Noncontributory. REVIEW OF SYSTEMS: HEENT: No complaints of lightheadedness or dizziness. CARDIOVASCULAR: History of atrial fibrillation, on Eliquis. PULMONARY: No history of asthma or COPD, GASTROINTESTINAL: No history of GERD. There is presumably GI bleed due to his acute anemia. The remainder of his review of system is within normal limits. PHYSICAL EXAMINATION: VITAL SIGNS: Showed blood pressure of 142/67 with a heart rate of 70, respiratory rate of 12. The patient is afebrile. NECK: Supple. No jugular venous distention. CHEST: Clear to auscultation and percussion. HEART: S1 normal intensity, S2 single. Regular rate and rhythm. No S3 appreciated. ABDOMEN: Benign. EXTREMITIES: No edema, clubbing, or cyanosis. IMPRESSION: 1. Severe anemia requiring blood transfusion, most likely secondary to gastrointestinal bleed. 2. Acute congestive heart failure exacerbation, most likely secondary to severe anemia. Currently, the patient is on diuresis. 3. Abnormal nuclear stress test. 4. Possible gastrointestinal bleed. 5. History of hypertension. RECOMMENDATIONS: The patient is diuresing well. He is cleared from the cardiovascular standpoint to undergo a GI procedure once he is euvolemic. A 2-dimensional echocardiogram was ordered. We will continue to hold Eliquis at this point. We will keep his hemoglobin around 10 g. I will continue to follow and provide further recommendation accordingly. MD JACQUELINE Maurer/herlinda , 07:32 AM , 07:40 AM
--- NOTE | 2018-05-15 08:40 | P.AMA ---
AMA Note - Diagnosis (1) Acute respiratory failure (2) Acute exacerbation of CHF (congestive heart failure) (3) Acute blood loss anemia Recommended Treatment Course: Cleared by cardiology. Needs upper and lower endoscopy for GI bleed with chronic apixaban use. Patient refusing and wishes to leave AMA. Currently hemodynamically stable on room air. AMA Statement: Patient Neptali Hernandez has decided to leave the hospital against medical advice. This patient has the capacity to refuse care and understands the risks of leaving, including permanent disability and/or , and has had an opportunity to ask questions about his/her condition. The patient has been informed that he/she may return for care at any time, and follow up has been arranged/advised. Discharge Disposition: Against Medical Advice Patient Condition on Discharge: Serious
--- NOTE | 2018-05-15 10:57 | XR ---
EXAM DATE: 05/15/2018 10:46 AM EST AGE/SEX: 72 years / Male INDICATIONS: . Cough CLINICAL DATA: This is the patient's initial encounter. Patient reports that signs and symptoms have been present for 2 days and indicates a pain score of 0/10. MEDICAL/SURGICAL HISTORY: Hypertension. a-fib . ablation COMPARISON: C, CHEST 1V SINGLE AP, 05/14/2018. . FINDINGS: AP and lateral views of the chest demonstrate the lungs to be symmetrically aerated with resolving in terstitial prominence when compared to prior. Minimal linear interstitial prominence persists in the expected location of the lingula which may represent baseline scarring. No confluent infiltrate. Hear t size is normal. Osseous structures are intact CONCLUSION: 1. Improving radiographic appearance of the chest with resolving interstitial prominence and bibasil ar atelectatic changes. 2. Residual interstitial prominence in the left lingular region may be chronic. Electronically signed by: Emerson Mercado MD Board Certified Radiologist 05/15/2018 10:56 AM EST
[2018-05-15] MEDS ORDERED: Labetalol HCl Inj 20 MG/4 ML Vial ONE (13:44)
[2018-05-15] MEDS ORDERED: Lidocaine PF 1% Inj 5 ML Syringe OTHER ONE (14:11)
--- NOTE | 2018-05-15 14:45 | GIPROC ---
[facility] [address] [facility]. [facility], [address] EGD PROCEDURE REPORT EXAM DATE: 05/15/2018 PATIENT NAME: Neptali Hernandez MR #: [id number] BIRTHDATE: 1945 ATTENDING: Leobardo Calles MD ORDER #: [id number] RN EMPLOYEE HEALTH: Dm Menard and Kelsey Llamas STATUS: inpatient INDICATIONS: The patient is a 72 yr old male here for an EGD due to iron deficiency anemia PROCEDURE PERFORMED: EGD, diagnostic MEDICATIONS: Per Anesthesia and None. TOPICAL ANESTHETIC: none CONSENT: The patient understands the risks and benefits of the procedure and understands that these risks include, but are not limited to: sedation, allergic reaction, infection, perforation and/or bleeding. Alternative means of evaluation and treatment include, among others: physical exam, x-rays, and/or surgical intervention. The patient elects to proceed with this endoscopic procedure. medical equipment was checked for proper function. Hand hygiene and appropriate measures for infection prevention was taken. After the risks, benefits and alternatives of the procedure were thoroughly explained, Informed consent was verified, confirmed and timeout was successfully executed by the treatment team. The patient was anesthetized with topical anesthesia and the Pentax EG-[id number] endoscope was introduced through the mouth and advanced to the second portion of the duodenum. Retroflexed views revealed no abnormalities The gastroscope was then slowly withdrawn and removed. ESOPHAGUS: The mucosa of the esophagus appeared normal. STOMACH: The mucosa of the stomach appeared normal. DUODENUM: The duodenal mucosa appeared normal in the entire duodenum. ADVERSE EVENTS: There were no complications. IMPRESSIONS: 1. The esophagus appeared normal 2. The mucosa of the stomach appeared normal 3. Normal duodenal mucosa in the entire duodenum 4. Retroflexed views revealed no abnormalities RECOMMENDATIONS: 1. Monitor labs Supportive tx 2. Colonoscopy PATIENT CONDITION: stable DISPOSITION: Inpatient REPEAT EXAM: Return as needed for EGD Leobardo Calles MD eSigned: Leobardo Calles MD 05/15/2018 2:44 PM cc: PATIENT NAME: Neptali Hernandez MR#: [id number]
[2018-05-15 15:00] VITALS: TEMP 97.5
[2018-05-15 15:03] VITALS: BP 119/62; PULSE 97; RESP 20; O2SAT 95
--- NOTE | 2018-05-15 15:36 | P.PNCC ---
Subjective Subjective Remarks/Hospital Course: This is a 72-year-old male with a history of coronary artery disease who presented to the emergency department with worsening shortness of breath times a few days. Per records and the patient report, he is scheduled for elective left heart catheterization tomorrow 05/14 by his it security administrator. The patient states that he has been having worsening left shoulder pain and bilateral lower extremity pain for the past few weeks, and that prompted left heart catheterization. His Eliquis has been held times 5 days in preparation for this. He presented to the emergency department with severe shortness of breath and acute hypoxemia with respiratory distress. He was placed on BiPAP. Chest x -ray demonstrates bilateral infiltrates suggestive of pulmonary edema. His BNP is greater than 700. He was given 2 doses of Lasix 40 mill grams IV. Both the emergency room physician as well as the internal medicine nurse practitioner contacted me as they felt the patient was clinically decompensating. In addition, 2 units PRBCs were ordered for a new hemoglobin of 7 in the setting of presumed GI bleeding and both providers felt that blood product administration in the setting of severe congestive heart failure exacerbation more likely to cause worsening clinical decompensation. Due to their clinical concerns, the patient was emergently transferred to [facility] in [place] for further workup and evaluation. When I evaluated the patient on arrival to the ICU at [facility], the patient's dyspnea was improving. He was able to talk in full sentences. He states he feels this is his shortness of breath is improved. Denies new complaints. Denies fever, chills, nausea, vomiting, abdominal pain, hematemesis, hematochezia, bright red blood per rectum, chest pain, orthopnea, dyspnea on exertion. Remainder of the review of systems is negative. 05/14 Patient is awake and alert on BIPAP 15/5 with 35% FIO2. Afebrile. s/p transfusion 2u PRBC overnight. On Protonix drip. Hypertensive. Subjective 05/15: Currently on room air. Negative upper endoscopy today. Cleared by cardiology. Wants to go home. Objective Vital Signs / I&O: Vital Signs 05/14/18 16:00 05/14/18 16:06 05/14/18 16:30 Temperature 98.4 F Pulse Rate 86 86 84 Respiratory Rate 27 H 28 H Blood Pressure 155/67 H 151/72 H Pulse Oximetry 93 L 94 L 05/14/18 17:00 05/14/18 17:30 05/14/18 18:00 Temperature Pulse Rate 89 84 86 Respiratory Rate 32 H 26 H 30 H Blood Pressure 143/67 H 158/74 H Pulse Oximetry 93 L 96 93 L 05/14/18 18:06 05/14/18 19:00 05/14/18 19:20 Temperature Pulse Rate 81 77 79 Respiratory Rate 21 16 Blood Pressure 132/59 L Pulse Oximetry 93 L 95 05/14/18 20:00 05/14/18 21:00 05/14/18 22:00 Temperature 98.7 F Pulse Rate 79 82 96 H Respiratory Rate 27 H 24 42 H Blood Pressure 108/74 130/57 L 136/65 Pulse Oximetry 93 L 97 95 05/14/18 23:00 05/15/18 00:00 05/15/18 01:00 Temperature 97.6 F Pulse Rate 66 62 81 Respiratory Rate 22 20 24 Blood Pressure 145/65 H 135/64 147/67 H Pulse Oximetry 94 L 90 L 91 L 05/15/18 02:00 05/15/18 03:00 05/15/18 04:00 Temperature 98.4 F Pulse Rate 75 71 71 Respiratory Rate 24 20 24 Blood Pressure 142/65 H 122/63 142/67 H Pulse Oximetry 93 L 92 L 95 05/15/18 05:00 05/15/18 06:00 05/15/18 06:31 Temperature Pulse Rate 65 68 66 Respiratory Rate 16 14 15 Blood Pressure 147/69 H 157/67 H 138/60 Pulse Oximetry 95 94 L 93 L 05/15/18 07:00 05/15/18 07:01 05/15/18 07:30 Temperature Pulse Rate 77 78 84 Respiratory Rate 18 23 Blood Pressure 136/63 143/68 H Pulse Oximetry 93 L 94 L 94 L 05/15/18 07:55 05/15/18 08:00 05/15/18 08:01 Temperature Pulse Rate 85 88 Respiratory Rate 20 Blood Pressure 150/66 H Pulse Oximetry 98 96 96 05/15/18 08:30 05/15/18 09:00 05/15/18 09:31 Temperature Pulse Rate 86 86 85 Respiratory Rate 22 24 Blood Pressure 161/70 H 146/68 H 169/70 H Pulse Oximetry 96 93 L 93 L 05/15/18 10:00 05/15/18 10:08 05/15/18 10:28 Temperature Pulse Rate 115 H 92 H Respiratory Rate 19 Blood Pressure 135/74 Pulse Oximetry 93 L 93 L 05/15/18 11:00 05/15/18 11:03 05/15/18 11:30 Temperature Pulse Rate 124 H 119 H Respiratory Rate 15 Blood Pressure 135/63 149/82 H Pulse Oximetry 90 L 96 93 L 05/15/18 14:35 05/15/18 14:45 Temperature 97.5 F L 97.5 F L Pulse Rate 89 97 H Respiratory Rate 18 20 Blood Pressure 104/70 119/62 Pulse Oximetry 94 L 95 Intake & Output 05/14/18 05/15/18 05/15/18 18:59 06:59 18:59 Intake Total 300 / 300 100 / 100 400 / 400 Output Total 1300 / 1300 750 / 750 Balance -1000 / -1000 -650 / -650 400 / 400 Weight 74 kg Intake: IV 300 / 300 100 / 100 300 / 300 Protonix Inj 80 MG In NS Inj 100 / 100 100 / 100 100 / 100 100 ML @ 10 mls/hr IV.CONT CONT KIRAN Rx#:[id number] KCl 20 mEq Premix Inj 20 meq In 200 / 200 200 / 200 100 ml @ 50 mls/hr IV.SIG Q2H PRN Rx#:[id number] NS Inj 250 ML @ 15 mls/hr IV. 0 / 0 SIG ONCE KIRAN Rx#:[id number] Oral 0 / 0 0 / 0 Anesthesia Amount 100 / 100 Output: Urine 1300 / 1300 750 / 750 Other: # Voids 5 # Bowel Movements 0 Result Diagrams: 05/15/18 03:55 05/15/18 03:55 Imaging: Chest X-Ray 05/13/18 15:25 CONCLUSION: Probable congestive failure superimposed over chronic fibrosis. Inflammatory process cannot be entirely excluded. Chest CT 05/14/18 00:00 CONCLUSION: 1. Bowel wall thickening collapsed stomach 2. Moderate congestive failure Chest X-Ray 05/14/18 09:01 CONCLUSION: Widespread interstitial lung disease with overall improved aeration since the . Questionable small residual infiltrate right lung base. Chest X-Ray 05/15/18 00:00 CONCLUSION: 1. Improving radiographic appearance of the chest with resolving interstitial prominence and bibasilar atelectatic changes. 2. Residual interstitial prominence in the left lingular region may be chronic. Objective Remarks: GENERAL: Patient is 72 yo lying in bed in no acute distress SKIN: Warm and dry. HEAD: Normocephalic. EYES: No scleral icterus. No injection or drainage. NECK: Supple, trachea midline. No JVD or lymphadenopathy. CARDIOVASCULAR: Regular rate and rhythm without murmurs, gallops, or rubs. RESPIRATORY: Breath sounds equal bilaterally. No accessory muscle use. GASTROINTESTINAL: Abdomen soft, non-tender, nondistended. MUSCULOSKELETAL: No cyanosis, or edema. Neuro: awake and alert. No focal deficits. Assessment and Plan - Problem List (1) Acute respiratory failure Code(s): J96.00 - Acute respiratory failure, unspecified whether with hypoxia or hypercapnia Status: Acute (2) Acute exacerbation of CHF (congestive heart failure) Code(s): I50.9 - Heart failure, unspecified Status: Acute (3) Acute blood loss anemia Code(s): D62 - Acute posthemorrhagic anemia Status: Acute - Assessment and Plan Plan: Neurologic: Awake and alert Frequent neurochecks Avoid long-acting sedatives Acetaminophen 650 by tube every 6 hours as needed fever Respiratory: Acute hypoxic respiratory failure Pulmonary edema Continue with oxygen keep sats >92% Bronchodilators with albuterol/ipratropium aerosols every 6 hours while awake and albuterol aerosols every 2 hours as needed dyspnea BIPAP PRN for resp distress On methylprednisolone succinate 40 mg every [address] chest ? chronic ILD. Diuresis furosemide 40 mg IV daily Cardiovascular: Acute severe congestive heart failure exacerbation, unknown type Coronary artery disease Atypical angina/possible unstable angina based on clinical history Hypertension Monitor HR and BP keep MAP>65mmHg. Place on Cardizem 60mg Q6 resume amiodarone 2 mg daily Cardiology is following. Dr. Baker following For 2D echo to eval LV function On Lasix 40mg daily Renal: Acute kidney injury Monitor renal function, I/O's, avoid nephrotoxins Continue Lasix 40mg daily GI: Possible GI bleeding Currently on clear liquid diet GI consulted. Negative EGD. Metoprolol drip changed to 4 mg IV twice daily Heme/ID: Acute anemia secondary to blood loss s/p transfusion 2 units PRBC overnight Hgb 9.9 this morning from 7.2 Avoid anticoagulation No infectious etiology suspected at this time Endocrine: Diabetes -- SSI Prophylaxis: GI Prophylaxis PPI drip DVT Prophylaxis -- SCDs Hold pharmacologic DVT prophylaxis in the setting of presumed GI bleeding Lines: Peripheral IVs Level 2. Stable from critical care medicine standpoint. Assign care to hospitalist team 05/16. Transfer from ICU. (1) Acute respiratory failure Qualifiers: Respiratory failure complication: unspecified whether with hypoxia or hypercapnia Qualified Code(s): J96.00 - Acute respiratory failure, unspecified whether with hypoxia or hypercapnia (2) Acute exacerbation of CHF (congestive heart failure) Qualifiers: Heart failure type: unspecified Qualified Code(s): I50.9 - Heart failure, unspecified
[2018-05-15] MEDS ORDERED: Acetaminophen 325 MG Tablet PO PRN (15:37)
[2018-05-15] MEDS ORDERED: Pantoprazole Inj 40 MG Vial IV.PUSH SCH (16:00)
--- NOTE | 2018-05-15 16:10 | P.AMA ---
AMA Note - Diagnosis (1) Acute respiratory failure (2) Acute exacerbation of CHF (congestive heart failure) (3) Acute blood loss anemia Recommended Treatment Course: Patient states for his EGD. Need to resume full dose anticoagulation. Admitted with anemia. Continue monitoring recommended. AMA Statement: Patient Neptali Hernandez has decided to leave the hospital against medical advice. This patient has the capacity to refuse care and understands the risks of leaving, including permanent disability and/or , and has had an opportunity to ask questions about his/her condition. The patient has been informed that he/she may return for care at any time, and follow up has been arranged/advised. Discharge Disposition: Against Medical Advice Patient Condition on Discharge: Serious
--- NOTE | 2018-05-15 21:50 | ECHRPT ---
Indication: CONCLUSIONS Normal left ventricular size. Wall thickness is upper normal. The left ventricular systolic function is normal with an estimated ejection fraction in the range of 60-65%. Normal wall motion. Mild aortic valve sclerosis is present. There is trace tricuspid valve regurgitation. BP: / HR: Rhythm: MEASUREMENTS (Male / Female) Normal Values Technical Quality: 2D ECHO LV Diastolic Diameter PLAX 4.9 cm 4.2 - 5.9 / 3.9 - 5.3 cm LV Systolic Diameter PLAX 3.4 cm IVS Diastolic Thickness 1.0 cm 0.6 - 1.0 / 0.6 - 0.9 cm LVPW Diastolic Thickness 1.0 cm 0.6 - 1.0 / 0.6 - 0.9 cm LV Relative Wall Thickness 0.4 RV Internal Dim ED PLAX 1.4 cm LVOT Diameter 2.1 cm Aortic Root Diameter 3.2 cm M-MODE AV Cusp Separation MM 1.7 cm DOPPLER AV Peak Velocity 212.0 cm/s AV Peak Gradient 18.0 mmHg AV Mean Gradient 8.0 mmHg AV Velocity Time Integral 38.4 cm LVOT Peak Velocity 116.0 cm/s LVOT Peak Gradient 5.4 mmHg LVOT Velocity Time Integral 22.9 cm AV Area Cont Eq vti 2.1 cm AV Area Cont Eq pk 1.9 cm Mitral E Point Velocity 79.0 cm/s Mitral A Point Velocity 83.9 cm/s Mitral E to A Ratio 0.9 LV E' Lateral Velocity 11.6 cm/s Mitral E to LV E' Lateral Ratio 6.8 LV E' Septal Velocity 8.2 cm/s Mitral E to LV E' Septal Ratio 9.6 TR Peak Velocity 342.0 cm/s TR Peak Gradient 46.8 mmHg Right Atrial Pressure 10.0 mmHg Pulmonary Artery Systolic Pressu 56.8 mmHg Right Ventricular Systolic Press 56.8 mmHg PV Peak Velocity 95.5 cm/s PV Peak Gradient 3.6 mmHg FINDINGS LEFT VENTRICLE Normal left ventricular size. Wall thickness is upper normal. The left ventricular systolic function is normal with an estimated ejection fraction in the range of 60-65%. Normal wall motion. RIGHT VENTRICLE Normal right ventricular size and systolic function. LEFT ATRIUM The left atrial size is normal. RIGHT ATRIUM The right atrial size is normal. ATRIAL SEPTUM No atrial level shunt is demonstrated by color flow Doppler interrogation. AORTA The aortic root and proximal ascending aorta are not well visualized. MITRAL VALVE Trace mitral valve regurgitation. AORTIC VALVE Mild aortic valve sclerosis is present. TRICUSPID VALVE There is trace tricuspid valve regurgitation. PULMONARY VALVE No pulmonary valve regurgitation or stenosis. VESSELS The inferior vena cava is normal in size. PERICARDIUM No pericardial effusion. Michael Mosher MD Edited by: collection systems administrator collection systems administrator (Electronically Signed) Final Date:15 May 2018 20:47 Amended: 15 May 2018 21:49
[2018-05-15] MEDS ORDERED: MethylPREDNISolone Sod Succinate Inj 40 MG/ML Vial IV.PUSH SCH (22:00)
[2018-05-16] MEDS ORDERED: Isosorbide Mononitrate 30 MG ER 24HR Tablet (Imdur) PO SCH (07:00)
[2018-05-16] MEDS ORDERED: Amiodarone 200 MG Tablet PO SCH (09:00)
== END 2018-05-15 16:07 | disposition left against medical advice (07) | DRG 291 ==
LOC: PHED 15:16 → PHEDA 16:23 → HIMC 22:55
PROVIDERS: ADMIT Internal Medicine Critical Care Medicine; ATTEND Internal Medicine Critical Care Medicine
PROC: PANENDO (2018-05-15 14:11)
CPT/HCPCS: 36430; 36600; 71010; 71020; 71045; 71046; 71250; 80048; 80053; 81001; 82805; 83520; 83735; 83880; 84100; 84484; 85014; 85018; 85025; 85610; 85730; 86850; 86900; 86901; 86923; 87641; 90765; 93005; 93306; 94002; 94003; 94640; 94656; 94657; 94664; 94665; 96365; 99291; C9113; J0360; J1940; J2060; J2704; J2920; J2930; J3480; J7050; P9016